=== PATIENT | male | born 1975 | race Caucasian/White ===

== ENCOUNTER 2024-07-19 02:10 | Inpatient (IN) | payer OTHER, SELFPAY ==
[2024-07-18 23:18] VITALS: BP 136/96
[2024-07-18 23:19] LABS: Glucose - Point of Care 115 mg/dl (70-99)
--- NOTE | 2024-07-18 23:32 | ED.CVA ---
History of Present Illness
<Haim Ramachandran Jr., PA-C - Last Filed: 07/19/24 01:18>
General
Chief Complaint: CVA/TIA Symptoms
Source: patient and ambulance crew
Exam Limitations: none
Time Seen by Provider: 07/18/24 23:25
Nursing documentation reviewed up to this point in time: agreed with
Onset of Stroke Symptoms
Onset of symptoms known: Yes
Date of onset of symptoms: 07/18/24
Time of onset of symptoms: 22:00
History of Present Illness
History of Present Illness:
48-year-old male past medical history of migraines presenting to the emergency department today with concerns of right-sided paresthesia of the right arm right leg as well as visual field loss on the right side laterally. Symptoms started 1 hour
prior to arrival. Did have some degree of right-sided throbbing headache that felt somewhat similar to a migraine earlier this morning. Seem to resolve during the day felt like the migraine was coming back a few hours ago did take an Excedrin
earlier in the evening. About 1 hour ago woke up from nap felt okay stood up was walking in his home and numbness tingling to the right upper and right lower extremity. [place] some vague weakness to the right side as well. Also noticed more visual
loss on the right lateral aspect. Also felt like he had some difficulty finding words. He then called EMS and was brought to the ER. Patient denies any ongoing paresthesia to the right upper and right lower extremity. He does claim he is having
slight difficulty finding words at this point and still has visual field loss on the right lateral side.
Review of Systems
<Haim Ramachandran Jr., PA-C - Last Filed: 07/19/24 01:18>
Review of Systems
Allergies reviewed?: Yes
All Other Systems: ROS reviewed and negative except as documented in HPI and ROS
Phy Exam
<Haim Ramachandran Jr., PA-C - Last Filed: 07/19/24 01:18>
Physical Exam
Physical Exam:
GENERAL: Alert , in no apparent distress
EYE: Right eye lateral visual field loss, normal on the left side pupils equal and reactive
NECK: Supple, no significant adenopathy.
ENT: o/p clr, mmm.
CARDIAC: Regular rate and rhythm .
LUNGS: Clear breath sounds bilaterally, no acute respiratory distress, no wheezes/rales/rhonchi
ABDOMEN: Soft, without focal tenderness, no r/g, no cvat
NEUROLOGICAL: Seems to have expressive aphasia to some extent difficulty finding words but able to eventually. Sentences are not perfectly fluid. Otherwise alert and oriented, no focal neuro deficits 5 out of 5 upper and lower extremity strength
normal sensation with palpating bilaterally normal finger-nose and [id number]
SKIN: Warm and dry, skin intact.
MUSCULOSKELETAL: No edema, well perfused.
PSYCH: Normal and appropriate interaction.
Course
<Haim Ramachandran Jr., ANSHU - Last Filed: 07/19/24 01:18>
Orders/Labs/Results
Orders:
Orders
07/18/24 23:21
Electrocardiogram (*1) Urgent
Reason for Study: Other
Other Reason for Exam: Possible Stroke
CT HEAD STROKE ALERT W/o Cont Stat
Comment:
Reason For Exam: stroke alert
CT HEAD/NECK ANG STROKE ALERT Stat
Comment:
Reason For Exam: stroke alert
Bedside Glucose- Treatment ONCE
Cardiac Monitoring- Treatment ONCE
EKG- Treatment ONCE
IV Insert/Care/Rem.- Treatment PRN
Urinalysis Reflex To Culture Urgent
Date Specimen was Collected: 07/18/24
Time Specimen was Collected: 23:21
Vital Signs As Directed
Frequency: Other
Weight As Directed
Frequency: Once
Comment: ZERO STRETCHER SCALE FOR ACCURATE WEIGHT
O2 Therapy [RESP] Urgent
Titrate/Wean O2 to maintain O2 sat greater than (%): 93
Special Instructions: MAINTAIN CONTINUOUS O2 SATS > OR = 93%
07/18/24 23:[address]
CT BRAIN PERF STROKE ALERT Stat
Comment:
Reason For Exam: stroke alert
07/18/24 23:41
CRP [C-Reactive Protein] Urgent
Complete Blood Count/With Diff Urgent
Comprehensive Metabolic Panel Urgent
ESR [Erythrocyte Sed Rate] Urgent
PTT Urgent
Prothrombin Time Urgent
Troponin I Urgent
07/19/24 00:03
Urine Microscopic Reflex Cult Urgent
07/19/24 00:23
Tenecteplase [Tnkase] 24 mg Syringe [Syringe Non-Pump] 0 ml IV NOW
Provider explained risk/benefits to patient &/or caregiver?: Yes
Blood pressure: 136/96
07/19/24 01:32
Admit/Transfer Patient As Directed
Co-Sign Provider:
Level of Care: Inpatient admission
Assign to:: ICU
Physician / Group: [place]
Diagnosis: CVA s/p TNK
Patient Condition: Serious
Reason for Hospitalization: CVA s/p TNK
Expected length of stay greater than two midnights?: Yes
ELOS- Estimated Length of Stay in days: 2
I certify the patient meets the requirements for IP care: Yes
PRN Pain Medication Management As Directed
May give lesser potent ordered pain med per pt: Yes
preference::
Protocol:: Medication orders for pain may be administered in a
manner that supports deferring to patient preference
when the pt is:
- Requesting an ordered lesser potent pain medication.
Least to most potent pain medications are defined
as: acetaminophen < NSAID < tramadol < opioids
(morphine, oxycodone, hydromorphone).
- Requesting a lesser dose of the same medication IF
ORDERED.
- Requesting a less intrusive route of administration
if both routes are prescribed by the provider (PO <
IV).
07/19/24 01:33
Code Status As Directed
Resuscitation Status: Full Code
07/19/24 01:53
0.9% Sodium Chloride [Nss (Preservative Free)] See Protocol IV PRN PRN
FOLic ACID [Folvite] 1 mg 0.9% Sodium Chloride 50 ml [Nss] 50 ml IV DAILYPRN
Lorazepam [Ativan] 1 mg IV Q1HPRN PRN
Lorazepam [Ativan] 1 mg PO Q2HPRN PRN
Lorazepam [Ativan] 2 mg IV Q1HPRN PRN
MSAS SCORE As Directed
MSAS Score 0-4: Repeat MSAS every 2 hours until 0-4 for three consecutive assessments, then every 4 hours x 48
hours.
MSAS Score 5-7: For MILD withdrawl symptoms. Repeat MSAS and RASS every 2 hours
MSAS Score 8-11: For MODERATE withdrawal symptoms. Repeat MSAS and RASS every 1 hour. Consider ICU or IMU
level of care.
MSAS Score > 11: For SEVERE withdrawal symptoms. Repeat MSAS and RASS every 1 hour. Notify provider, consider
ICU level of care.
MSAS Additional Instructions: If no improvement or no decrease in score from severe to moderate within 12
hours, consult psychiatry
MSAS Notify Provider: Notify provider if patient requires more than 10 mg of Lorazepam in eight hour period.
07/19/24 02:14
Acetaminophen [Tylenol] 650 mg PO Q4HPRN PRN
Atorvastatin [Lipitor] 40 mg PO QPM
Labetalol HCl [Trandate] 5 mg IV Q6HPRN PRN
07/19/24 02:14
Echo 2D MMode Color/Doppler Routine
Reason for Study: stroke/TIA
Electrocardiogram (*1) Routine
Reason for Study: TIA/Stroke
Case Management Consult Once
Case Management Consult: Other
Comment: CVA
Consult Notification Routine
Specialty to Notify: Physiatry
DIETARY IP CONSULT Routine
Reason for Consult: stroke/TIA
Rural Electrification Engineer Consult Routine
Consulting Provider: Swapna Yo
Was physician already notified: Yes
NEUROLOGY CONSULT Urgent
Consulting Provider: Chintan Thao
Was physician already notified: Yes
Reason for consult: CVA s/p TNK
Licensed Social Worker Urgent
MR Brain Without Contrast Routine
Comment: complete 24 hrs post tenecteplase administration
Reason For Exam: possible stroke, status post tenecteplase
OK for patient to be off Cardiac Monitoring for MRI: Yes
Recent pill cam endoscopy?: No
Pacemaker/Defibrillator?: No
Brain Aneurysm Clips?: No
Have you ever worked with metal? grinding metal? welding?: No
Cochlear(ear) implants?: No
Does Pt have a Temp Sensing Cath?: No
Does the patient have IV access?: Yes
Does the patient have any stents?: No
Hemetest Stools As Directed
Comment: hemoccult all stools if patient received tenecteplase
NIH Stroke Scale As Directed
Directions: Other
Comment: NIH stroke Scale to be completed prior to thrombolytic administration, then every 1 hour for 2
hours, then every shift and with change in condition and/or mental status.
Neurological Checks As Directed
Frequency: Per unit guidelines
Additional Instructions:: after start of thrombolytic therapy:
q15min x 2 hrs, q30min x 6 hrs, q1h x 16 hrs, q4h x 24 hrs, then every shift and
with any changes.
Notify MD As Directed
Notify physician if: - Any deterioration, change in neurological status, development of severe headache,
nausea and vomiting, or with any signs of bleeding. (see guidelines for suspected
intracerebral hemorrhage).
- If intracranial hemorrhage is suspected or confirmed by imaging, anticipate need for
osmotic diuretic to maintain euvolemia.
Notify MD As Directed
Notify physician if: Glucose less than 70 or greater than 180.
Anticipate corrective insulin orders.
Notify MD As Directed
Notify physician if: SBP not at goal within 30 minutes of prn LABETALOL administration.
notify provider to initiate continuous infusion of nicardipine or clevidipine.
Notify MD As Directed
Notify physician if: unable to obtain MRI of head within 22-32 hours of tenecteplase administration
- contact Neurology for order for CT of head without contrast
Patient Education As Directed
Type: Stroke education packet
Comment: provide to patient and family
Pneumatic Compression Sleeves As Directed
Type: Knee high
Precautions As Directed
Type of Precautions: Bleeding
Comment: post Bleeding Precaution sign at bedside (if patient received tenecteplase)
Swallow Screening CVA/TIA ONLY As Directed
Comment: NPO until swallow screening completed
If patient FAILS swallow screening:: NPO and Speech consult and aspiration precautions
If patient PASSES swallow screening, diet:: Cholesterol Lowering
Thrombolytic Precautions As Directed
Thrombolytic Precautions:: [place] bleeding precautions. Minimize invasive procedures and venipunctures,
avoid IM injections and over-handling patient, and check all puncture sites for
bleeding. Assess the patient and notify provider for signs and symptoms of
internal or serious bleeding, such as changes in vital signs or evidence of blood
in the urine or stool.
Additional instructions: Hemocult all stools.
Apply direct pressure or pressure dressing to any compressible puncture sites.
No ABG sampling or Gan insertion after Tenecteplase administration for 24 hours,
unless directed by the Neurologist/Attending.
Vital Signs As Directed
Frequency: q15m
Call for:: BP greater than 180/105 mmHg or less than 100/60 mmHg
Additional Instructions:: after start of thrombolytic therapy:
q15min x 2 hrs, q30min x 6 hrs, q1h x 16 hrs, q4h x 24 hrs, then every shift and
with any changes.
Ot Eval And Treat Routine
Physiatry Consult Routine
Consulting Provider: Monique Isaacs
Was physician already notified: No
Reason for consult: stroke/TIA
Pt Eval And Treat Routine
Activity Level: As Tolerated
Speech Therapy Eval & Treat Routine
DX Deep Vein Thrombosis Video Routine
07/19/24 03:12
Cardiovascular Evaluation IN AM
Complete Blood Count/No Diff IN AM
Comprehensive Metabolic Panel Routine
Direct Bilirubin Routine
Hemoglobin A1c [Glycohemoglobin (HgbA1c)] IN AM
PTT IN AM
Prothrombin Time IN AM
07/19/24 08:00
Cholecalciferol (Vitamin D3) [VITAMIN D3 (cholecalciferol)] 25 mcg PO DAILY
FOLic ACID [Folvite] 1 mg PO DAILY
Thiamine Injection 200 mg IV Q12
07/22/24 08:00
Thiamine HCl [Vitamin B1] 100 mg PO BID
Abnormal Lab Results
07/18/24 07/18/24 07/19/24
23:18 23:41 00:03
Absolute Monos (auto) 0.7 H 10^3/uL
(0.1-0.6)
Chloride 108 H mmol/L
(98-107)
BUN 21 H mg/dl
(9-20)
Glucose 118 H mg/dl
(70-99)
Urine Albumin (Reflex) 1+ A
(Neg - Trace)
POC Glucose 115 H mg/dl
(70-99)
07/18/24 23:41
07/18/24 23:41
Vital Signs
Initial and Last Documented VS:
Initial Vital Signs
Temp Pulse Resp BP Pulse Ox
98.7 F 80 18 136/96 99
07/18/24 23:18 07/18/24 23:18 07/18/24 23:18 07/18/24 23:18 07/18/24 23:18
Last Documented Vital Signs
Temp Pulse Resp BP Pulse Ox
98.7 F 57 17 104/68 96
07/19/24 03:08 07/19/24 06:03 07/19/24 06:03 07/19/24 06:03 07/19/24 06:00
<Evlia Ashton, DO - Last Filed: 07/19/24 06:20>
Orders/Labs/Results
Orders:
Orders
07/18/24 23:21
Electrocardiogram (*1) Urgent
Reason for Study: Other
Other Reason for Exam: Possible Stroke
CT HEAD STROKE ALERT W/o Cont Stat
Comment:
Reason For Exam: stroke alert
CT HEAD/NECK ANG STROKE ALERT Stat
Comment:
Reason For Exam: stroke alert
Bedside Glucose- Treatment ONCE
Cardiac Monitoring- Treatment ONCE
EKG- Treatment ONCE
IV Insert/Care/Rem.- Treatment PRN
Urinalysis Reflex To Culture Urgent
Date Specimen was Collected: 07/18/24
Time Specimen was Collected: 23:21
Vital Signs As Directed
Frequency: Other
Weight As Directed
Frequency: Once
Comment: ZERO STRETCHER SCALE FOR ACCURATE WEIGHT
O2 Therapy [RESP] Urgent
Titrate/Wean O2 to maintain O2 sat greater than (%): 93
Special Instructions: MAINTAIN CONTINUOUS O2 SATS > OR = 93%
07/18/24 23:[address] BRAIN PERF STROKE ALERT Stat
Comment:
Reason For Exam: stroke alert
07/18/24 23:41
CRP [C-Reactive Protein] Urgent
Complete Blood Count/With Diff Urgent
Comprehensive Metabolic Panel Urgent
ESR [Erythrocyte Sed Rate] Urgent
PTT Urgent
Prothrombin Time Urgent
Troponin I Urgent
07/19/24 00:03
Urine Microscopic Reflex Cult Urgent
07/19/24 00:23
Tenecteplase [Tnkase] 24 mg Syringe [Syringe Non-Pump] 0 ml IV NOW
Provider explained risk/benefits to patient &/or caregiver?: Yes
Blood pressure: 136/96
07/19/24 01:32
Admit/Transfer Patient As Directed
Co-Sign Provider:
Level of Care: Inpatient admission
Assign to:: ICU
Physician / Group: [place]
Diagnosis: CVA s/p TNK
Patient Condition: Serious
Reason for Hospitalization: CVA s/p TNK
Expected length of stay greater than two midnights?: Yes
ELOS- Estimated Length of Stay in days: 2
I certify the patient meets the requirements for IP care: Yes
PRN Pain Medication Management As Directed
May give lesser potent ordered pain med per pt: Yes
preference::
Protocol:: Medication orders for pain may be administered in a
manner that supports deferring to patient preference
when the pt is:
- Requesting an ordered lesser potent pain medication.
Least to most potent pain medications are defined
as: acetaminophen < NSAID < tramadol < opioids
(morphine, oxycodone, hydromorphone).
- Requesting a lesser dose of the same medication IF
ORDERED.
- Requesting a less intrusive route of administration
if both routes are prescribed by the provider (PO <
IV).
07/19/24 01:33
Code Status As Directed
Resuscitation Status: Full Code
07/19/24 01:53
0.9% Sodium Chloride [Nss (Preservative Free)] See Protocol IV PRN PRN
FOLic ACID [Folvite] 1 mg 0.9% Sodium Chloride 50 ml [Nss] 50 ml IV DAILYPRN
Lorazepam [Ativan] 1 mg IV Q1HPRN PRN
Lorazepam [Ativan] 1 mg PO Q2HPRN PRN
Lorazepam [Ativan] 2 mg IV Q1HPRN PRN
MSAS SCORE As Directed
MSAS Score 0-4: Repeat MSAS every 2 hours until 0-4 for three consecutive assessments, then every 4 hours x 48
hours.
MSAS Score 5-7: For MILD withdrawl symptoms. Repeat MSAS and RASS every 2 hours
MSAS Score 8-11: For MODERATE withdrawal symptoms. Repeat MSAS and RASS every 1 hour. Consider ICU or IMU
level of care.
MSAS Score > 11: For SEVERE withdrawal symptoms. Repeat MSAS and RASS every 1 hour. Notify provider, consider
ICU level of care.
MSAS Additional Instructions: If no improvement or no decrease in score from severe to moderate within 12
hours, consult psychiatry
MSAS Notify Provider: Notify provider if patient requires more than 10 mg of Lorazepam in eight hour period.
07/19/24 02:14
Acetaminophen [Tylenol] 650 mg PO Q4HPRN PRN
Atorvastatin [Lipitor] 40 mg PO QPM
Labetalol HCl [Trandate] 5 mg IV Q6HPRN PRN
07/19/24 02:14
Echo 2D MMode Color/Doppler Routine
Reason for Study: stroke/TIA
Electrocardiogram (*1) Routine
Reason for Study: TIA/Stroke
Case Management Consult Once
Case Management Consult: Other
Comment: CVA
Consult Notification Routine
Specialty to Notify: Physiatry
DIETARY IP CONSULT Routine
Reason for Consult: stroke/TIA
Rural Electrification Engineer Consult Routine
Consulting Provider: Swapna Yo
Was physician already notified: Yes
NEUROLOGY CONSULT Urgent
Consulting Provider: Chintan Thao
Was physician already notified: Yes
Reason for consult: CVA s/p TNK
Licensed Social Worker Urgent
MR Brain Without Contrast Routine
Comment: complete 24 hrs post tenecteplase administration
Reason For Exam: possible stroke, status post tenecteplase
OK for patient to be off Cardiac Monitoring for MRI: Yes
Recent pill cam endoscopy?: No
Pacemaker/Defibrillator?: No
Brain Aneurysm Clips?: No
Have you ever worked with metal? grinding metal? welding?: No
Cochlear(ear) implants?: No
Does Pt have a Temp Sensing Cath?: No
Does the patient have IV access?: Yes
Does the patient have any stents?: No
Hemetest Stools As Directed
Comment: hemoccult all stools if patient received tenecteplase
NIH Stroke Scale As Directed
Directions: Other
Comment: NIH stroke Scale to be completed prior to thrombolytic administration, then every 1 hour for 2
hours, then every shift and with change in condition and/or mental status.
Neurological Checks As Directed
Frequency: Per unit guidelines
Additional Instructions:: after start of thrombolytic therapy:
q15min x 2 hrs, q30min x 6 hrs, q1h x 16 hrs, q4h x 24 hrs, then every shift and
with any changes.
Notify MD As Directed
Notify physician if: - Any deterioration, change in neurological status, development of severe headache,
nausea and vomiting, or with any signs of bleeding. (see guidelines for suspected
intracerebral hemorrhage).
- If intracranial hemorrhage is suspected or confirmed by imaging, anticipate need for
osmotic diuretic to maintain euvolemia.
Notify MD As Directed
Notify physician if: Glucose less than 70 or greater than 180.
Anticipate corrective insulin orders.
Notify MD As Directed
Notify physician if: SBP not at goal within 30 minutes of prn LABETALOL administration.
notify provider to initiate continuous infusion of nicardipine or clevidipine.
Notify MD As Directed
Notify physician if: unable to obtain MRI of head within 22-32 hours of tenecteplase administration
- contact Neurology for order for CT of head without contrast
Patient Education As Directed
Type: Stroke education packet
Comment: provide to patient and family
Pneumatic Compression Sleeves As Directed
Type: Knee high
Precautions As Directed
Type of Precautions: Bleeding
Comment: post Bleeding Precaution sign at bedside (if patient received tenecteplase)
Swallow Screening CVA/TIA ONLY As Directed
Comment: NPO until swallow screening completed
If patient FAILS swallow screening:: NPO and Speech consult and aspiration precautions
If patient PASSES swallow screening, diet:: Cholesterol Lowering
Thrombolytic Precautions As Directed
Thrombolytic Precautions:: [place] bleeding precautions. Minimize invasive procedures and venipunctures,
avoid IM injections and over-handling patient, and check all puncture sites for
bleeding. Assess the patient and notify provider for signs and symptoms of
internal or serious bleeding, such as changes in vital signs or evidence of blood
in the urine or stool.
Additional instructions: Hemocult all stools.
Apply direct pressure or pressure dressing to any compressible puncture sites.
No ABG sampling or Gan insertion after Tenecteplase administration for 24 hours,
unless directed by the Neurologist/Attending.
Vital Signs As Directed
Frequency: q15m
Call for:: BP greater than 180/105 mmHg or less than 100/60 mmHg
Additional Instructions:: after start of thrombolytic therapy:
q15min x 2 hrs, q30min x 6 hrs, q1h x 16 hrs, q4h x 24 hrs, then every shift and
with any changes.
Ot Eval And Treat Routine
Physiatry Consult Routine
Consulting Provider: Monique Isaacs
Was physician already notified: No
Reason for consult: stroke/TIA
Pt Eval And Treat Routine
Activity Level: As Tolerated
Speech Therapy Eval & Treat Routine
DX Deep Vein Thrombosis Video Routine
07/19/24 03:12
Cardiovascular Evaluation IN AM
Complete Blood Count/No Diff IN AM
Comprehensive Metabolic Panel Routine
Direct Bilirubin Routine
Hemoglobin A1c [Glycohemoglobin (HgbA1c)] IN AM
PTT IN AM
Prothrombin Time IN AM
07/19/24 08:00
Cholecalciferol (Vitamin D3) [VITAMIN D3 (cholecalciferol)] 25 mcg PO DAILY
FOLic ACID [Folvite] 1 mg PO DAILY
Thiamine Injection 200 mg IV Q12
07/22/24 08:00
Thiamine HCl [Vitamin B1] 100 mg PO BID
Abnormal Lab Results
07/18/24 07/18/24 07/19/24
23:18 23:41 00:03
Absolute Monos (auto) 0.7 H 10^3/uL
(0.1-0.6)
Chloride 108 H mmol/L
(98-107)
BUN 21 H mg/dl
(9-20)
Glucose 118 H mg/dl
(70-99)
Urine Albumin (Reflex) 1+ A
(Neg - Trace)
POC Glucose 115 H mg/dl
(70-99)
07/18/24 23:41
07/18/24 23:41
Vital Signs
Initial and Last Documented VS:
Initial Vital Signs
Temp Pulse Resp BP Pulse Ox
98.7 F 80 18 136/96 99
07/18/24 23:18 07/18/24 23:18 07/18/24 23:18 07/18/24 23:18 07/18/24 23:18
Last Documented Vital Signs
Temp Pulse Resp BP Pulse Ox
98.7 F 57 17 104/68 96
07/19/24 03:08 07/19/24 06:03 07/19/24 06:03 07/19/24 06:03 07/19/24 06:00
<Haim Ramachandran Jr., PA-C - Last Filed: 07/19/24 01:18>
MDM/Problems Addressed
MDM/Problems Addressed:
48-year-old male presenting to the emergency department with concerns of right-sided paresthesias right-sided visual field loss and expressive aphasia. Did have felt like may have been a migraine does have a history of migraines. Symptoms started
while awake 1 hour ago. The paresthesia on the right sides has resolved but he still having visual field loss on the right side on examination as well. Also has a mild expressive aphasia. Stroke scale of 2. Stroke alert was called.
0015: Contacted about patient's CT scan concerning for vertebral artery dissection with thrombosis as well as evidence of stroke of left occipital lobe MARRIAGE AND FAMILY COUNSELOR distribution significant area of penumbra. Case was immediately discussed with neurology and
recommended TNK. This was thoroughly discussed with the patient including risk its bleeding risk as well. Patient wanted to proceed with receiving TNK. Hospitalist notified of the admission.
0035: Case additionally discussed with [facility] stroke team. Dr. [place]. They do not feel that he requires transfer as they would not do any intervention at this time.
Patient stable during thrombolytic treatment. Symptoms improving during ER stay.
Chronic conditions affecting care:
Contacted
<Haim Ramachandran Jr., PA-C - Last Filed: 07/19/24 01:18>
*Critical Care Note
Total Time (30-74mins, 75-104mins- exclusive of procedures): Not Applicable
comment:
Critical care statement: A total of 40 minutes of critical care time was provided for this patient. This includes management of unstable vital signs, evaluation of the patient at bedside, reviewing the patient's pertinent medical records, discussion
with consultants, review of old EKGs and review of pertinent medical records. This time with separate from time utilized to perform the aforementioned documented procedures
ED Attending Note
<Haim Ramachandran Jr., PA-C - Last Filed: 07/19/24 01:18>
-
Portions of this chart may have been created with voice recognition software.� Occasional wrong word or��sound alike� substitutions may have occurred due to the inherent limitations of voice recognition software.
<Elvia R. Ashton, DO - Last Filed: 07/19/24 06:20>
ED Attending Note
Patient seen and examined by attending physician: Yes
I performed a history and physical exam of patient and discussed management with resident, I reviewed resident's note and agree with documented findings and plan of care.: Yes
ED Attending Note:
Agree with above.
48-year-old gentleman with history of intermittent migraines presents with acute onset of significant right-sided global paresthesia, expressive aphasia, right visual field deficit. Had moderate headache and posterior neck pain throughout the day
today which has resolved this evening.
No insightful injury but admits to heavy lifting, working out with kettle bells prior to onset of some posterior neck pain a few days ago.
Upon arrival to the ED awake and alert, oriented x 3, no evidence of aphasia. Mild paresthesia globally to the right side and moderate right visual field deficit. No motor deficit. Initial NIH stroke scale of 2.
Stroke alert initiated promptly upon arrival to the ED.
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
Case discussed with neurology recommend TNK. Benefits/risks discussed including small risk of bleeding. Patient agreeable.
As per our neurologist recommendations, consideration for potential vertebral artery stent, we have spoken with neurologist at [place], images reviewed�at this point no indication for neuro-intervention, no intervention for stenting.
Overall symptoms improving.
Will admit to hospitalist service, ICU.
Critical care statement: A total of 40 minutes of critical care time was provided for this patient. This includes management of unstable vital signs, evaluation of the patient at bedside, reviewing the patient's pertinent medical records, discussion
with consultants, review of old EKGs and review of pertinent medical records. This time with separate from time utilized to perform the aforementioned documented procedures
Discharge Plan
Departure
Patient Disposition: Admit
Date of Disposition: 07/19/24
Time of Disposition: 00:48
Admit to: ICU
Admit to doctor: [place]
Presentation/result/management discussed w/ accepting MD/DO: Hospitalist
Patient with high blood pressure during this ER visit?: No
Condition: Fair
Covid-19: Not Applicable
Discharge Problem:
Occipital stroke, Dissection of vertebral artery
Interventions
Interventions:
*Risk Screen - Suicide Last Done: 07/18/24 23:18
*General Assessment Last Done: 07/18/24 23:18
*Neglect/Abuse Screening Last Done: 07/18/24 23:18
*ED- Fall Risk Assessment Last Done: 07/18/24 23:50
*ED COVID-19 Vaccine History Last Done: 07/18/24 23:50
*Nursing Disposition Last Done: 07/19/24 02:20
ED- Pulmonary Assessment Last Done: 07/18/24 23:50
ED- Neurological Assessment Last Done: 07/19/24 01:30
ED- Cardiac Assessment Last Done: 07/18/24 23:50
Discharge Date and Time
Discharge Date/Time: 07/19/24 02:20
[2024-07-18 23:47] LABS: % Basophils 0.7 % (0-2); % Eosinophils 4.6 % (0-6); % Immature Granulocytes 0.4 % (0-0.5); % Lymphocytes 26.9 % (20.5-51.1); % Monocytes 8.2 % (1.7-9.3); % Neutrophils 59.2 % (42.2-75.2); Absolute Basophils 0.1 10^3/uL (0-0.2); Absolute Eosinophils 0.4 10^3/uL (0-0.7); Absolute Lymphocytes 2.2 10^3/uL (1.2-3.4); Absolute Monocytes 0.7 10^3/uL (0.1-0.6); Absolute Neutrophils 4.8 10^3/uL (1.4-6.5); Hemoglobin 14.8 g/dL (13.0-18.0); Mean Corp Hgb Conc. 34.4 g/dL (33.0-37.0); Mean Platelet Volume 9.9 fL (7.4-10.4); Nucleated Red Blood Cells % 0 % (-); Platelet Count 286 10^3/uL (130-400); Red Blood Cell Count 4.94 10^6/uL (4.70-6.10); Red Cell Dist. Width 13.2 % (11.5-14.5); White Blood Cell Count 8.1 10^3/uL (4.8-10.8)
[2024-07-18 23:50] VITALS: BMI 29.2
[2024-07-19] VITALS (89 sets, daily range): BP systolic 104–159; BP diastolic 59–99; BMI 28.4
[2024-07-19] LABS: ALT (SGPT) 25 U/L (0-50); AST (SGOT) 27 U/L (17-59); Albumin 4.6 g/dl (3.5-5.0); Alkaline Phosphatase 103 U/L (38-126); Blood Urea Nitrogen 21 mg/dl (9-20); Calcium 9.7 mg/dl (8.4-10.2); Carbon Dioxide 26 mmol/L (22-30); Chloride 108 mmol/L (98-107); Estimated Creatinine Clearance 73 ml/min; Glucose 118 mg/dl (70-99); Potassium 4.1 mmol/L (3.5-5.1); Sodium 141 mmol/L (135-145); Total Bilirubin 0.7 mg/dl (0.2-1.3); Total Protein 7.6 g/dl (6.3-8.2); eGFR > 60.00
[2024-07-19 00:01] LABS: INR 0.83; PT 11.9 Sec (11.4-14.6)
[2024-07-19 00:02] LABS: APTT 26.7 Sec (23.4-35.0)
[2024-07-19 00:04] LABS: C-Reactive Protein < 5.00 mg/L (0.0-10.00)
[2024-07-19 00:10] LABS: Erythrocyte Sed Rate 10 mm/hour (0-20)
[2024-07-19 00:18] LABS: Troponin I 0.015 ng/ml
[2024-07-19 00:20] LABS: Urine Albumin 1+ (Neg - Trace); Urine Bilirubin Negative (Negative); Urine Character Clear (Clear); Urine Color Yellow; Urine Glucose Negative (Negative); Urine Ketone Negative (Negative); Urine Leukocyte Negative (Negative); Urine Nitrite Negative (Negative); Urine Occult Blood Negative (Negative); Urine Urobilinogen Negative (Neg - 1+)
[2024-07-19 00:27] LABS: Urine Squamous Cell 0-2 /LPF (Few)
[2024-07-19 00:29] LABS: Urine Red Blood Cell None Seen /HPF (0-2); Urine White Cell 0-2 /HPF (0-5)
[2024-07-19] MEDS: TNKASE 4.8 MG IV (00:31)
--- NOTE | 2024-07-19 01:45 | HPS.HSE ---
Family Physician
-
Family Physician: Anabella Pires
Chief Complaint
-
Right Sided Numbness, Weakness and Right Visual Field Deficit x 1 day
History of Present Illness
48yo M with PMH Migraine with Aura, NAHUN (not treated), Dry Mouth/Hx Gingival Bleeding, Alcohol Use presents to ER with Right Sided Numbness, Weakness and Right Visual Field Deficit x 1 day. Pt went to work per routine taking the train to [place]. Around
8am he felt an Aura as if he were going to have a migraine. Initially over his right mormonism, then over his frontal region. BRAND finally ensued at 1:30 pm with photo/phonophobia. He went outside for a walk and symptoms eventually abated. Made it home,
took a nap. Around 10pm he got up and went into the kitchen and felt sudden right arm/leg numbness which progressed to total weakness. He later noticed he had right lateral visual field loss. Denies Fever, Chills, Chest Pain, Palps, Sob, Cough, Abd
Pain, N/V/D/C, Dysuria, Calf or Leg Pain. Pt does note gingival bleeding s/p TNK administered 07/19 at 1231; he reports this being a problem in past 2/2 dry mouth.
ER course: Pt presents BP 149/95 -> 136/96, other V.S.S. WBC 8.1K, Hgb 14.8 g/dL, BUN/Cr 21/1.3, UA wnl, INR 0.83. Stroke alert on arrival. CT Brain: Subtle loss of spear-white matter differentiation in L Occiptal Lobe. No acute hemorrhage/mass; CT
perfusion: Left occiptal lobe infarct in DOUGH SHEETER distribution CTA H/N: nonspecified left vertebral artery just beyond origin in neck with faint reconstitution at level of C2 and intracranially concerning for thrombosed dissection. Left DOUGH SHEETER P3 segment
not well visualized. Similarly R DOUGH SHEETER distal P2 and P3 segments appear to have discontinuous contrast opacification. Case D/W Thrombectomy - no acute intervention. Case D/W Neurology - S/P TNK administered 07/19 at 12:31.
Medical History
Past Medical History
Past Medical History: Reports Other (Migraine with Aura, NAHUN (not treated), Dry Mouth/Hx Gingival Bleeding, Alcohol Use)
Past Surgical History: Reports Other (Colonoscopy)
Social History
Tobacco: Former Smoker (Previous 1PPD x 20 yrs, quit age 29.)
Alcohol: Binge drinker (Drinks 6-8 whiskey drinks 3 times per week, last drink Tuesday consuming 5 drinks. )
Drug: None
Personal:
Living: With Family
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
Family History
Family History: Other (Paternal Uncle with CVA. Mother with endometrial Ca. Father with ETOH abuse. )
Allergies / Home Medications
Allergies reflects when Allergies were last updated in [employer].
Home Medications with original date entered in [employer]
Allergy/Medication List:
Allergies
Allergy/AdvReac Type Severity Reaction Status Date / Time
No Known Allergies Allergy Unverified 07/18/24 23:17
Home Medications
acetylcysteine 600 mg capsule (NAC) mg 07/19/24
cholecalciferol (vitamin D3) 25 mcg (1,000 unit) chewable tablet (Vitamin D3) 25 mcg PO DAILY 07/19/24
creatine monohydrate 07/19/24
miscellaneous medical supply 07/19/24
Review of Systems
-
A 12 point ROS was completed and negative except as noted: Yes
Physical Exam
Vital Signs
Vital Signs
Temp Pulse Resp BP Pulse Ox
98.7 F 76 18 135/91 97
07/18/24 23:18 07/19/24 01:33 07/19/24 01:33 07/19/24 01:33 07/19/24 01:21
Physical Exam
General: Well Developed, Well Nourished and No Apparent Distress
HEENT: NormoCephalic, Atraumatic, Murphy Conjunctivae and Other (Dry MM, Poor dentition with gingival bleeding s/p TNK)
Respiratory: Clear
Cardiac: S1/S2 and Regular Rhythm; No Murmur or Rub
GI: Soft, Non Tender, Non Distended and Normal Bowel Sounds; No Organomegaly
Rectal: Deferred by Provider
Musculoskeletal: No Clubbing, No Cyanosis and No Edema
Skin: Warm and Dry; No Rash
Neuro: Awake, Alert, Oriented, AO x 3 and Other (Pt evaluated s/p TNK. MSK UE 5/5 throughout. MSK LE 5/5 throughout. Finger to nose grossly intact. Heel to thapa grossly intact. Speech comprehensible. Pupils 3mm equal and reactive. Right lateral
visual field deficit. ); No Slurred Speech, Facial Droop or Tremors
Hematologic/Lymphatic: No Lymphadenopathy
Psych: Calm
Laboratory Results
-
07/18/24 23:41
07/18/24 23:41
Laboratory Results
PT 11.9 Sec (11.4-14.6) 07/18/24 23:41
INR 0.83 07/18/24 23:41
APTT 26.7 Sec (23.4-35.0) 07/18/24 23:41
Total Bilirubin 0.7 mg/dl (0.2-1.3) 07/18/24 23:41
AST 27 U/L (17-59) 07/18/24 23:41
ALT 25 U/L (0-50) 07/18/24 23:41
Alkaline Phosphatase 103 U/L (38-126) 07/18/24 23:41
Troponin I 0.015 ng/ml 07/18/24 23:41
Data Reviewed
-
Diagnostic Radiology: Image Personally Visualized and interpreted
CT Scan: Image Personally Visualized and interpreted
Medical Tests (Nuc Med, Echo, EKG etc): Image Personally Visualized and interpreted (EKG NSR @ 67bpm, No acute ischemic changes, QTC 388ms.)
Lab Data: Labs Reviewed by me
Old Records: Reviewed
Impression/Plan
-
CVA
- Aura/Headaches (around 8am) followed by right sided numbness and weakness with right visual field deficit (around 10pm)
- Stroke Alert.
- CT Brain: Subtle loss of spear-white matter differentiation in L Occiptal Lobe. No acute hemorrhage/mass; CT perfusion: Left occipital lobe infarct in DOUGH SHEETER distribution CTA H/N: nonspecified left vertebral artery just beyond origin in neck with
faint reconstitution at level of C2 and intracranially concerning for thrombosed dissection. Left DOUGH SHEETER P3 segment not well visualized. Similarly R DOUGH SHEETER distal P2 and P3 segments appear to have discontinuous contrast opacification. Case D/W
Thrombectomy - no acute intervention.
- Case D/W Neurology - S/P TNK administered 07/19 at 12:31.
- Resolution of right sided deficits. Right visual deficit still present
- Continue neurochecks
- Start atorvastatin 40mg nightly
- Check Lipids/A1C
- Obtain TTE
- Obtain MRI brain
- Neurology consulted.
- PT/OT/REGIONAL SALES REPRESENTATIVE
Hypertension
- BP 149/95 at peak in ER
- Prn Labetalol 5mg IV for SBP > 180/105 mmHg in setting of TNK
Alcohol Abuse
- Drinks 6-8 whiskey drinks 3 times per week, last drink Tuesday consuming 5 drinks
- Denies known liver disease or withdrawal history
- Coags wnl. Check LFTs
- Thiamine/Folate. Prn Benzos per protocol
- Monitor MSAS
Gingival Bleeding - Mild gingival bleeding s/p TNK. Continue to monitor. Could consider nebulized TXA.
Hx Migraines - Previously treated with exedrin, taken earlier today. Prn Tylenol.
NAHUN - Pt reports intolerance to cpap.
Code Status: Full
Diet: Cardiac following bedside speech eval
DVT ppx: SCDs in setting of TNK.
--- NOTE | 2024-07-19 03:40 | PTCARENOTE ---
On assessment pt AAOx3, ST equally, pupils PERRLA, c/o mild 3/10 headache with neck discomfort, denies medication at this time, MSAS 0, last drink per pt was sunday 07/16, NIH 2 completed with ER nurse, vision field cut in b/l eyes, CHOCOLATE PRODUCTION MACHINE OPERATOR made aware of
new change and at bedside to assess pt, NIH remains at 2, SR/SB on the monitor, RA 97%, regular diet, blood return noted in b/l IVs, family at bedside and call thompson in reach
[2024-07-19 03:41] LABS: Hematocrit 41.2 % (39.0-52.0); Hemoglobin 14.1 g/dL (13.0-18.0); Mean Corp Hgb Conc. 34.2 g/dL (33.0-37.0); Mean Corpuscular Hgb 29.7 pg (27.0-31.0); Mean Corpuscular Volume 86.7 fL (80.0-94.0); Mean Platelet Volume 9.6 fL (7.4-10.4); Platelet Count 260 10^3/uL (130-400); Red Blood Cell Count 4.75 10^6/uL (4.70-6.10); Red Cell Dist. Width 13.1 % (11.5-14.5); White Blood Cell Count 7.6 10^3/uL (4.8-10.8)
[2024-07-19 03:46] LABS: INR 0.83; PT 11.9 Sec (11.4-14.6)
[2024-07-19 03:49] LABS: APTT 26.2 Sec (23.4-35.0)
[2024-07-19 03:53] LABS: ALT (SGPT) 23 U/L (0-50); AST (SGOT) 23 U/L (17-59); Albumin 4.4 g/dl (3.5-5.0); Alkaline Phosphatase 111 U/L (38-126); Blood Urea Nitrogen 20 mg/dl (9-20); Calcium 9.7 mg/dl (8.4-10.2); Carbon Dioxide 24 mmol/L (22-30); Chloride 108 mmol/L (98-107); Direct Bilirubin 0.1 mg/dl (0.0-0.4); Estimated Creatinine Clearance 106 ml/min; Glucose 118 mg/dl (70-99); HDL Cholesterol 53 mg/dl; LDL Cholesterol, Calculated 118 mg/dl; Magnesium 1.9 mg/dl (1.6-2.3); Phosphorus 3.4 mg/dl (2.5-4.5); Potassium 4.1 mmol/L (3.5-5.1); Sodium 139 mmol/L (135-145); Total Bilirubin 0.6 mg/dl (0.2-1.3); Total Cholesterol 209 mg/dl (50-199); Total Protein 7.2 g/dl (6.3-8.2); Triglyceride 191 mg/dl (10-149); Very Low Density Lipoprotein 38 mg/dl (0-30); eGFR > 60.00
[2024-07-19] MEDS: LIPITOR 40 MG PO (04:09)
--- NOTE | 2024-07-19 06:46 | W.PN.HOSP.TC ---
Addendum entered and electronically signed by Saskia Delgadillo MD 07/19/24 13:43:
I saw and evaluated the patient independently. I reviewed the resident�s note and agree with findings and plan as documented by Dr. Hadley.
GENERAL: well developed, well nourished, male in no apparent distress
HEENT: NC/AT
HEART: regular rate and rhythm, +S1, +S2
LUNGS : clear to auscultation bilaterally
ABDOM: soft, nontender, nondistended, + bowel sounds
EXT: no cyanosis, clubbing, or edema
NEUROLOGIC: grossly intact--? subtle word finding/memory issues
acute CVA--patient had what he described as the aura which would normally precede his migraines but his headache did not rise to the level of the migraine--he woke after a nap at 10 PM in the evening with right visual deficit, right sided facial
numbness, proceeding to right arm and leg numbness--CT scan done in the emergency department showed left occipital lobe infarct in the posterior circulation along with left vertebral artery intracranially concerning for a thrombosed
dissection--patient received TNK on July 19, 2024--he had resolution of right sided deficits but his vision loss has persisted--will need aspirin and possibly Eliquis given possibility of vertebral artery dissection--unfortunately, cannot have until
the 24-hour michael--will check MRI brain--appreciate neurology--added statin--will need PT/OT/speech--will need echocardiogram--given his visual field deficit he should not drive--neurology has informed the patient of this
essential HTN--permissive hypertension after TNK administration--follow BP--May need medication if blood pressure remains elevated
alcohol use/abuse--patient drinks 6-8 whiskeys 3 times per week--no signs of withdrawal symptoms--continue MSAS protocol
gingival bleeding--follow given TNK administration
history of migraines --resolved
NAHUN--intolerance to CPAP
DVT prophylaxis--SCDs
CODE STATUS--full code
Original Note:
Today's Communication/Plan
-
-Stat brain MRI pending to be obtained
-Echo pending to be [id number]
-Continue neurochecks per protocol
-Follow-up BPs, vitals
Assessment / Plan
Assessment / Plan
#CVA complicated with right sided weakness and right partial visual deficit
-Brought to ER with Stroke Alert
-CT Brain: Subtle loss of spear-white matter differentiation in L Occiptal Lobe. No acute hemorrhage/mass; CT perfusion: Left occipital lobe infarct in SOFTWARE ANALYST distribution CTA H/N: nonspecified left vertebral artery just beyond origin in neck with faint
reconstitution at level of C2 and intracranially concerning for thrombosed dissection. Left SOFTWARE ANALYST P3 segment not well visualized. Similarly R SOFTWARE ANALYST distal P2 and P3 segments appear to have discontinuous contrast opacification. Case D/W Thrombectomy - no
acute intervention.
-Neurology on board- Given TNK on 07/19 at 12:31-
-Awaiting for neurology recommendation to start oral anticoagulants
-Will be obtained brain imaging with brain MRI as a part of TNK protocol-pending to be obtained
-On physical exam: No motor or sensory deficit. Found right upper quadrant visual deficit
-Continue neurochecks
-LDL:118 -Continue atorvastatin 40mg
-hgbA1C:pending
-TTE pending to be obtained to check a possible a cardioembolic thrombus source
-PT/OT
- Appreciate or speech therapist assessment: No dysarthria or dysphonia
#Hypertension
-No History of hypertension
-Likely stable
-BP peak was 159/98 last night
-Permissive hypertension given ischemic nature of CVA
-PRN Labetalol 5mg IV for SBP > 180/105 mmHg in setting of TNK
#Alcohol Abuse
- Drinks 6-8 whiskey drinks 3 times per week, last drink Tuesday consuming 5 drinks
- NO known liver disease or withdrawal history
- LFT s in WNL
- Continue Thiamine/Folate
- Monitor on MSAS
#Gingival Bleeding
-No signs of active bleeding for now
- Had mild gingival bleeding s/p TNK. Continue to monitor.
-Could consider nebulized TXA.
#Hx Migraines
-No complaints for now
- History of migraines headache with aura with the last episode yesterday
-Previously treated with exedrin, taken earlier yesterday
-Tylenol as needed
#NAHUN -not using currently BiPAP or CPAP
Diet: speech eval: Regular diet with general aspiration precautions
Code Status: Full
DVT ppx: SCDs in setting of TNK.
Anticipated Discharge: 24 - 48 hours
Subjective/Interval History
-
Date of Service: July 19, 2024
No complaints other than partial right vision loss
Objective Data
-
Labs:
Laboratory Results
07/18/24 07/19/24
23:41 03:12
WBC 8.1 7.6
Hgb 14.8 14.1
Hct 43.0 41.2
Plt Count 286 260
PT 11.9 11.9
INR 0.83 0.83
APTT 26.7 26.2
Sodium 141 139
Potassium 4.1 4.1
Chloride 108 H 108 H
Carbon Dioxide 26 24
BUN 21 H 20
Creatinine 1.3 0.9
Glucose 118 H 118 H
Calcium 9.7 9.7
Total Bilirubin 0.7 0.6
AST 27 23
ALT 25 23
Alkaline Phosphatase 103 111
Vital Signs:
Vital Signs
Temp Pulse Resp BP Pulse Ox
98.7 F 57 17 104/68 96
07/19/24 03:08 07/19/24 06:03 07/19/24 06:03 07/19/24 06:03 07/19/24 06:00
I&O
07/17/24 07/18/24 07/19/24
06:59 06:59 06:59
Intake Total
Output Total 700 / 700
Balance -670 / -670
Review of Systems
-
Constitutional: Reports No Symptoms and Other (right vision partial loss)
Physical Exam
-
General: Well Developed, Well Nourished and Comfortable
HEENT: Normocephalic, Atraumatic and Other (right upper quadrantanopia)
Respiratory: Clear to Auscultation
Cardiac: Regular Rhythm, S1/S2 and Bradycardic
GI: Soft, Nontender and Nondistended
Musculoskeletal: No Clubbing, No Cyanosis and No Edema
Skin: Warm
Neuro: Awake, Alert, Oriented, AO x 3 and Nonfocal/Grossly Intact
Psych: Calm
[2024-07-19] MEDS: VITAMIN D3 (cholecalciferol) 25 MCG PO (07:37)
[2024-07-19] MEDS: FOLVITE 1 MG PO (07:37)
[2024-07-19] MEDS: THIAMINE INJECTION 200 MG IV ×2 (07:37→22:14)
--- NOTE | 2024-07-19 07:54 | PTCARENOTE ---
Echo in progress.
--- NOTE | 2024-07-19 08:19 | PTCARENOTE ---
Rec'd care of patient at 0700. NIH stroke scale performed with previous RN. NIH-2 (right hemianopia). Patient alert and oriented. Pupils equal and reactive. Smile symmetrical, tongue midline. MAEx4; normal strength. Denies any numbness/tingling.
SB/NSR on tele. No edema. Palpable pulses. Lung sounds cta. Pulse ox 97-98% on RA. +BS. Passed swallow evaluation. No s/s aspiration. Pills taken whole with water. Voiding via urinal. Peripheral sites capped. VSS. Call thompson within reach.
--- NOTE | 2024-07-19 08:55 | PTOTSP ---
Speech Language Pathology
Pt seen for speech/language evaluations. No dysarthria or dysphonia noted. Language evaluated via the Quick Aphasia Battery (QAB). Pt with an overall score of 9.90, indicative of scores WNL.
Pt also seen for clinical bedside swallow evaluation. P.O. trials of puree, regular solids, and thin liquids provided. Adequate mastication, bolus formation, and A-P transit noted with no oral residue. No overt signs of aspiration.
Recommend:
(1) Regular solids/thin liquids
(2) General aspiration precautions
(3) Meds as tolerated
(4) ORCHESTRA DIRECTOR to continue to follow for cognitive evaluation
[2024-07-19 09:17] LABS: Glycohemoglobin (HgbA1c) 5.3 % (4.0-5.6)
--- NOTE | 2024-07-19 10:56 | CON.NEURO ---
Addendum entered and electronically signed by Chintan Thao MD 07/19/24 12:51:
paged by RN, patient with new numbness/tingling right face, and mild lightheadedness
patient examined, there is new decreased pinprick in the right V3 distribution
no changes to the plan; if she strokes a little more or has a small bleed nothing I can do; head CT is generally indicated if NIHSS worsens by 3 points or more
Original Note:
Neuro Assessment/Plan
Assessment
CTA head/neck images and report rev'd, agree left vertebral not well perfused, concerning for dissection with occlusion; bilateral distal P2 and P3 segments not well visualized
CT perfusion maps imgs reviewed with patient pointing out core and penumbra, stroke in left SOLE SEWER HAND territory with 9cc core and 45 cc penumbra
Plan
s/p TNK, getting 24 hrs of ICU monitoring
MRI brain and MRA head tonight with dissection protocol
may start Eliquis tomorrow if studies consistent with vertebral artery dissection with clot and depending on size of infarct
no driving unless visual cheung improve to 3/4 of field; DL-13 reported to COUNTS [facility] AT [facility]
the bottom quadrant often recovers but the top quadrant is less likely; will need formal visual field testing to get license back
above discussed with patient
Consultation
Order
Date of Consultation: 07/19/24
Requesting Provider: Haim Ramachandran Jr
Reason for Consult: stroke
Subjective/Objective
Subjective Data
Date of Service: July 19, 2024
from h&p:
48yo M with PMH Migraine with Aura, NAHUN (not treated), Dry Mouth/Hx Gingival Bleeding, Alcohol Use presents to ER with Right Sided Numbness, Weakness and Right Visual Field Deficit x 1 day. Pt went to work per routine taking the train to [place]. Around
8am he felt an Aura as if he were going to have a migraine. Initially over his right gnosticism, then over his frontal region. BRAND finally ensued at 1:30 pm with photo/phonophobia. He went outside for a walk and symptoms eventually abated. Made it home,
took a nap. Around 10pm he got up and went into the kitchen and felt sudden right arm/leg numbness which progressed to total weakness. He later noticed he had right lateral visual field loss. Denies Fever, Chills, Chest Pain, Palps, Sob, Cough, Abd
Pain, N/V/D/C, Dysuria, Calf or Leg Pain. Pt does note gingival bleeding s/p TNK administered 07/19 at 1231; he reports this being a problem in past 2/2 dry mouth.
ER course: Pt presents BP 149/95 -> 136/96, other V.S.S. WBC 8.1K, Hgb 14.8 g/dL, BUN/Cr 21/1.3, UA wnl, INR 0.83. Stroke alert on arrival. CT Brain: Subtle loss of spear-white matter differentiation in L Occiptal Lobe. No acute hemorrhage/mass; CT
perfusion: Left occiptal lobe infarct in SOLE SEWER HAND distribution CTA H/N: nonspecified left vertebral artery just beyond origin in neck with faint reconstitution at level of C2 and intracranially concerning for thrombosed dissection. Left SOLE SEWER HAND P3 segment
not well visualized. Similarly R SOLE SEWER HAND distal P2 and P3 segments appear to have discontinuous contrast opacification. Case D/W Thrombectomy - no acute intervention. Case D/W Neurology - S/P TNK administered 07/19 at 12:31.
last night around 12:10 am I spoke with Dr Ramachandran regarding this case, and advised treating with TNK, advised calling [facility] and no intervention was recommended.
This morning, patient continues having right sided visual field loss. the right sided weakness/numbness is resolved
he recalls ~1 year ago doing intense kettlebell exercises feeling something crack in his neck and developing neck pain
Objective Data
Vital Signs
Temp Pulse Resp BP Pulse Ox
37.0 C 68 18 122/97 96
07/19/24 07:37 07/19/24 10:33 07/19/24 10:33 07/19/24 10:33 07/19/24 10:30
Lab Results
07/19/24 03:12
07/19/24 03:12
PT 11.9 Sec (11.4-14.6) 07/19/24 03:12
INR 0.83 07/19/24 03:12
APTT 26.2 Sec (23.4-35.0) 07/19/24 03:12
Sodium 139 mmol/L (135-145) 07/19/24 03:12
Potassium 4.1 mmol/L (3.5-5.1) 07/19/24 03:12
BUN 20 mg/dl (9-20) 07/19/24 03:12
Glucose 118 mg/dl (70-99) H 07/19/24 03:12
Calcium 9.7 mg/dl (8.4-10.2) 07/19/24 03:12
Phosphorus 3.4 mg/dl (2.5-4.5) 07/19/24 03:12
LDL Cholesterol, Calc 118 mg/dl 07/19/24 03:12
Patient Allergies
No Known Allergies Allergy (Unverified 07/18/24 23:17)
CVA Assessment
Onset of Stroke Symptoms
Date of onset of symptoms: 07/18/24
Time of onset of symptoms: 22:00
NIH Stroke Score
Level of Consciousness: 0 - Alert
LOC Questions: 0-Answers both correctly
LOC Commands: 0-Performs both correctly
Best Horizontal Gaze: 0-Normal
Visual Cheung: 2=Full hemianopia
Facial Palsy: 0=Normal, symmetrical
Motor - Right Arm: 0=No drift 10 seconds
Motor - Left Arm: 0=No drift 10 seconds
Motor - Right Le-No drift 5 seconds
Motor - Left Le-No drift 5 seconds
Limb Ataxia: 0-Absent
Sensation: 0-Normal
Best Language: 0-No aphasia
Dysarthria: 0-Normal
Extinction and Inattention: 0-No abnormality
NIH Total Score:: 2
Physical Exam
-
AAOx3, speech clear, language intact
right homonymous hemianopsia
EOMI, face symmetric
full strength b/l UE/LE
sensation intact to touch/temp
Medications
-
Active Medications
Generic Name Dose Route Start Last Admin
Trade Name Freq PRN Reason Stop Dose Admin
Acetaminophen 650 mg 07/19/24 02:14
Acetaminophen 325 Mg Tablet PO 08/16/24 02:13
Q4HPRN PRN
BRAND, mild pain, or temp >100.4F
Atorvastatin Calcium 40 mg 07/19/24 02:14 07/19/24 04:09
Atorvastatin (Lipitor) 40 Mg Tablet PO 08/16/24 02:13 40 mg
QPM GATITO Administration
Cholecalciferol 25 mcg 07/19/24 08:00 07/19/24 07:37
Cholecalciferol (Vitamin D3) 25 Mcg Tablet (1,000 Units) PO 08/16/24 07:59 25 mcg
DAILY GATITO Administration
Folic Acid 1 mg 07/19/24 08:00 07/19/24 07:37
Folic Acid 1 Mg Tablet PO 08/16/24 07:59 1 mg
DAILY GATITO Administration
Folic Acid 1 mg/ Sodium 50.2 mls @ 200.8 mls/hr 07/19/24 01:53
Chloride IV 08/16/24 01:52
DAILYPRN PRN
if NPO
Labetalol HCl 10 mg 07/19/24 02:58
Labetalol Hcl 5 Mg/1 Ml (20 Mg/4 Ml) Injection IV 08/16/24 02:13
Q6HPRN PRN
BP > 180/105 mmHg
Lorazepam 1 mg 07/19/24 01:53
Lorazepam 1 Mg Tablet PO 08/16/24 01:52
Q2HPRN PRN
MSAS 5-7
Lorazepam 1 mg 07/19/24 01:53
Lorazepam 2 Mg/Ml Vial IV 08/16/24 01:52
Q1HPRN PRN
MSAS 8-11
Lorazepam 2 mg 07/19/24 01:53
Lorazepam 2 Mg/Ml Vial IV 08/16/24 01:52
Q1HPRN PRN
MSAS > 11
Sodium Chloride 0 ml 07/19/24 01:53
Sodium Chloride 0.9% (Preservative Free) 10 Ml Vial IV 08/16/24 01:52
PRN PRN
To dilute IV Ativan
Protocol
Sodium Chloride 0 flush 07/19/24 03:00
Sodium Chloride 0.9% (Flush) Syringe IV 08/16/24 02:59
PER PROTOCOL GATITO
Thiamine HCl 200 mg 07/19/24 08:00 07/19/24 07:37
Thiamine (100 Mg/Ml) 2 Ml Vial IV 07/21/24 20:01 200 mg
Q12 GATITO Administration
Thiamine HCl 100 mg 07/22/24 08:00
Thiamine 100 Mg Tablet PO 08/19/24 07:59
BID GATITO
Home Medications
�Medication �Instructions �Recorded
acetylcysteine 600 mg capsule (NAC) mg 07/19/24
cholecalciferol (vitamin D3) 25 25 mcg PO DAILY 07/19/24
mcg (1,000 unit) chewable tablet
(Vitamin D3)
creatine monohydrate 07/19/24
miscellaneous medical supply 07/19/24
--- NOTE | 2024-07-19 11:06 | CON.INTV ---
Addendum entered and electronically signed by Swapna Yo MD 07/20/24 10:33:
Patient transferring out of ICU.
WIll sign off. Please call as needed.
Original Note:
Consultation
Consultation Request
Date/Time Consultation Requested: 07/19/2024
Date/Time Consultation Performed: 07/19/2024
Reason for Consultation: Acute occipital lobe stroke
Medical History
-
Chief Complaint: Vertebral artery dissection
History of Present Illness:
48-year-old male past medical history of migraines, NAHUN, alcohol use disorder presented for right sided numbness and right-sided visual field deficit. Reportedly his last time known normal was Tuesday at 8 AM. Patient reports that he has no
history of hypertension, hyperlipidemia, diabetes, or remote smoking history. Reportedly he did have an injury where he exercises with kettle bells, was feeling odd sensation such as hotness and discomfort in the neck after The workout. On
presentation to the emergency department CT head demonstrated a left occipital lobe infarct. Noncontrast head CT demonstrated subtle loss of spear-white differentiation within the left occipital lobe. Aspect score 9 out of 10. Head neck CTA
demonstrated left vertebral artery not perfusing well near origin. Concerning for left vertebral artery dissection. Brain CT demonstrated prolonged Tmax in left occipital lobe and decreased cervical blood flow in the same area. Neurology was
consulted, patient was not a candidate for thrombectomy and he received TNK at approximately 00 31 07/23/2023. Reportedly patient reports that his symptoms have improved after receiving it however he does still have residual visual field deficits on
the right, lateral. No other visual field deficits present, all other cranial nerves grossly intact. No focal neurologic deficits present. Patient was admitted to the ICU after TNK administration. Of note patient is reporting he does not want to
start on a statin until he speaks to his physicians at [employer] where he works.
Past Medical History
Past Medical History: Other (Reportedly patient has a history of migraine with aura, obstructive sleep apnea. Reports no history of hypertension, no hyperlipidemia, no diabetes, remote smoking history )
Social History
Tobacco: Former Smoker
Alcohol: Chronic Alcoholic
Allergies / Home Medications
Allergies
Allergy/AdvReac Type Severity Reaction Status Date / Time
No Known Allergies Allergy Unverified 07/18/24 23:17
Home Medications
�Medication �Instructions �Recorded �Confirmed �Last Taken �Type
acetylcysteine 600 mg capsule (NAC) mg 07/19/24 Unknown History
cholecalciferol (vitamin D3) 25 25 mcg PO DAILY 07/19/24 07/19/24 07/18/24 History
mcg (1,000 unit) chewable tablet
(Vitamin D3)
creatine monohydrate 07/19/24 Unknown History
miscellaneous medical supply 07/19/24 Unknown History
Review of Systems
-
Constitutional: No Symptoms
EENT: No Symptoms
Respiratory: No Symptoms
Cardiac: No Symptoms
Abdomen/GI: No Symptoms
Musculoskeletal: No Symptoms
Neuro: Other (Right-sided visual field deficit)
Vitals / Labs / Diagnostic Testing
Vital Signs
Temp Pulse Resp BP Pulse Ox
98.6 F 68 18 122/97 96
07/19/24 07:37 07/19/24 10:33 07/19/24 10:33 07/19/24 10:33 07/19/24 10:30
Lab Data
07/19/24 03:12
07/19/24 03:12
Laboratory Results
07/18/24 07/19/24
23:41 03:12
PT 11.9 11.9
INR 0.83 0.83
APTT 26.7 26.2
Diagnostic Testing:
Physical Exam
-
Cardiovascular: S1/S2
Respiratory: Clear
GI: Soft and Non Distended
Neurology: Awake, Alert, Oriented, AO x 3, No Motor Deficits and Other (Right-sided visual field deficit, lateral visual more. Full strength and sensation throughout upper and lower extremity. Cranial nerves grossly intact except for right,
lateral sided visual field deficit)
Skin: Warm and Dry
General: Comfortable
Assessment
-
Assessment:
48-year-old male past medical history of migraines, NAHUN, alcohol use disorder presents for vertebral artery dissection, received TNK. Has isolated residual right sided lateral visual field deficit.
Plan:
#Vertebral artery dissection
#Left occipital lobe CVA
#Right sided lateral visual field deficit
Patient has no risk factors for stroke besides reported trauma while he was doing a kettle thompson workout of his neck. Reportedly former smoker stopped at 29, no diabetes, no hypertension, no hyperlipidemia reports no chiropractic treatment
Last time known normal was Tuesday at 8 AM
Presented to [place] emergency department with right sided lateral visual field deficit and reported right-sided hemiparesis
Was not a candidate for thrombectomy
Neurology consulted
Status post TNK administration at 0031 hrs 07/19/2024
Imaging and physical exam findings all point towards isolated left sided occipital lobe infarct secondary to left vertebral artery dissection
No focal neurologic deficits. Patient has full strength and sensation in upper and lower extremities. Cranial nerves grossly intact except for residual right sided lateral visual field deficit
Neurology evaluation pending
Will defer anticoagulation discussion and initiation to neurology
Patient reports he wants to speak to his physicians at [place] where he works prior to initiating statin. Patient currently refusing statin
Continue neurochecks
Brain MRI per neurology
TTE pending
PT OT
Speech therapy assessment
#Alcohol abuse
Reportedly 6-8 whiskey drinks 3 times daily, last reported drinking time was Tuesday
No known liver disease or withdrawal history
Currently patient has no symptoms of withdrawal
Continue thiamine/folate supplementation
Continue monitoring on MSAS protocol
#Hypertension
Had elevated pressures overnight
Currently normotensive
No reported history of hypertension, not on antihypertensive Home meds
Allow for permissive hypertension given ischemic CVA
Has as needed labetalol if needed for SBP greater than 180 in setting of TNK
Diet: Regular diet with general aspiration precautions
CODE STATUS full code
DVT prophylaxis SCDs in setting of TNK
Data:
07/18/[address] without contrast
Impression:
Subtle loss of spear-white differentiation within the left occipital lobe.
ASPECT score: 9/10
Findings are in agreement with the [facility]ology report.
07/18/2024 head and neck CVA
Impression:
1. The left vertebral artery is not well perfused near the origin, with weak segmental reconstitution of the distal cervical and proximal intracranial left vertebral artery. Basilar artery is normally perfused. Findings may represent left vertebral
arterial occlusion or dissection.
2. Distal P2 and P3 segments of each posterior cerebral artery are not well opacified.
Findings are in agreement with the [facility] radiology report.
07/18/[address] perfusion scan
Impression:
There is prolonged Tmax within the left occipital lobe, and decreased cerebral blood flow in the same area. Decreased cerebral blood volume within the left occipital lobe.
--- NOTE | 2024-07-19 12:45 | PTCARENOTE ---
Around 1220, patient complaining of new numbness/tingling in right side of face, dizziness and a headache. NIH stroke scale completed. NIH-3. Neurologist notified of changes. Neurologist at bedside to assess patient. Per neurologist, no changes in
plan of care at current time. VSS. No other changes. Patient remains alert and oriented. Pupils equal and reactive. Smile symmetrical, tongue midline. Speech normal. MAEx4; strength unchanged. NSR on tele. Pulse ox 96% on RA. Lung sounds cta.
Tolerated eating lunch. Voiding via urinal.
--- NOTE | 2024-07-19 14:27 | CM ---
Patient seen at bedside with physician in ICU. Patient states that he lives with his daughter and son, in a 2 story home. Patient PCP is Dr. Pires and he indicated that he uses the [facility] in [place]. Patient has a CPAP but does not use it.
Patient for further work up and pending PT/OT assessment for level of care qualification. CM will continue to follow for discharge planning needs.
Plan; home with watch for VN/outpatient needs pending therapy assessment
--- NOTE | 2024-07-19 16:36 | PTCARENOTE ---
No major changes in assessment. Patient states numbness/tinging in right side of face has slightly improved. Dizziness has resolved. Visual deficits unchanged. VSS.
[2024-07-19] MEDS: LIPITOR PO (17:42)
--- NOTE | 2024-07-19 17:42 | PTCARENOTE ---
Patient refused Lipitor. Education provided. Patient stating he does not want to take a statin; requesting to hold off and discuss cholesterol treatment with his doctor once discharged.
--- NOTE | 2024-07-19 19:00 | PTCARENOTE ---
Pt received start of shift, HR SR/SB on telemetry. NIH completed w/ outgoing RN; NIH 3 d/t vision loss in R eye and R facial numbness. L eye vision changes resolved. Pt states numbness in R face is improving but still not resolved. Neuro otherwise
intact, WNL. Oriented. Denies any pain, tongue midline. Voiding yellow clear urine in urinal.
--- NOTE | 2024-07-19 20:32 | PTCARENOTE ---
R sided facial numbness resolved. NIH 2 d/t unchanged vision loss in R eye.
--- NOTE | 2024-07-19 20:40 | PTCARENOTE ---
Transport pt to MRI
--- NOTE | 2024-07-19 21:59 | PTCARENOTE ---
Pt back from MRI. During MRI pt w/ episode of anxiety and restlessness after first series of imaging. Water provided, therapeutic speech utilized - effective. NIH 2.
--- NOTE | 2024-07-19 23:40 | PTCARENOTE ---
Pt states 'dullness'/numbness is back in R cheek and it 'sort of comes and goes'. [facility] 3.
[2024-07-20] VITALS (18 sets, daily range): BP systolic 102–140; BP diastolic 58–93; PULSE 65–67; BMI 27.6
[2024-07-20 04:55] LABS: Hematocrit 42.9 % (39.0-52.0); Hemoglobin 14.6 g/dL (13.0-18.0); Mean Corpuscular Hgb 29.3 pg (27.0-31.0); Mean Corpuscular Volume 86.1 fL (80.0-94.0); Mean Platelet Volume 9.5 fL (7.4-10.4); Platelet Count 264 10^3/uL (130-400); Red Blood Cell Count 4.98 10^6/uL (4.70-6.10); Red Cell Dist. Width 13.2 % (11.5-14.5); White Blood Cell Count 9.3 10^3/uL (4.8-10.8)
--- NOTE | 2024-07-20 05:06 | PTCARENOTE ---
Reassessed. NIH remains 2-3. No worsening of symptoms. Voiding yellow urine.
[2024-07-20 05:22] LABS: ALT (SGPT) 26 U/L (0-50); AST (SGOT) 25 U/L (17-59); Albumin 4.5 g/dl (3.5-5.0); Alkaline Phosphatase 48 U/L (38-126); Blood Urea Nitrogen 14 mg/dl (9-20); Calcium 10.1 mg/dl (8.4-10.2); Carbon Dioxide 24 mmol/L (22-30); Chloride 109 mmol/L (98-107); Estimated Creatinine Clearance 119 ml/min; Glucose 110 mg/dl (70-99); Potassium 4.2 mmol/L (3.5-5.1); Sodium 139 mmol/L (135-145); Total Bilirubin 1.6 mg/dl (0.2-1.3); Total Protein 7.5 g/dl (6.3-8.2); eGFR > 60.00
[2024-07-20] MEDS: VITAMIN D3 (cholecalciferol) 25 MCG PO (07:41)
[2024-07-20] MEDS: FOLVITE 1 MG PO (07:41)
[2024-07-20] MEDS: THIAMINE INJECTION 200 MG IV (07:41)
--- NOTE | 2024-07-20 08:39 | PTCARENOTE ---
Received pt sitting in chair. AOx3, see NIHSS, completed w/ previous RN. VSS. SB-NRS on monitor. Pt offers no complaints. Reviewed medications and plan of care.
--- NOTE | 2024-07-20 08:57 | W.PN.HOSP.TC ---
Addendum entered and electronically signed by Saskia Delgadillo MD 07/20/24 12:13:
I saw and evaluated the patient independently. I reviewed the resident�s note and agree with findings and plan as documented by Dr. Hadley.
GENERAL: well developed, well nourished, male in no apparent distress
HEENT: NC/AT
HEART: regular rate and rhythm, +S1, +S2
LUNGS : clear to auscultation bilaterally
ABDOM: soft, nontender, nondistended, + bowel sounds
EXT: no cyanosis, clubbing, or edema
NEUROLOGIC: grossly intact--? subtle word finding/memory issues--vision field deficit
acute CVA--patient had what he described as the aura which would normally precede his migraines but his headache did not rise to the level of the migraine--he woke after a nap at 10 PM in the evening with right visual deficit, right sided facial
numbness, proceeding to right arm and leg numbness--CT scan done in the emergency department showed left occipital lobe infarct in the posterior circulation along with left vertebral artery intracranially concerning for a thrombosed
dissection--patient received TNK on July 19, 2024--he had resolution of right sided deficits but his vision loss has persisted--will need aspirin and possibly Eliquis given possibility of vertebral artery dissection-- MRI brain with acute to subacute
area of infarction in left occipital lobe--appreciate neurology--added statin- PT/OT/speech--echocardiogram WNL--given his visual field deficit he should not drive--neurology has informed the patient of this--asa for 2 weeks followed by Eliquis
essential HTN--permissive hypertension after TNK administration--follow BP--May need medication if blood pressure remains elevated
alcohol use/abuse--patient drinks 6-8 whiskeys 3 times per week--no signs of withdrawal symptoms--continue MSAS protocol
gingival bleeding--follow given TNK administration
history of migraines --resolved
NAHUN--intolerance to CPAP
DVT prophylaxis--SCDs
CODE STATUS--full code
Original Note:
Today's Communication/Plan
-
Discharge plan
Assessment / Plan
Assessment / Plan
#Acute CVA with suspected vertebral artery dissection complicated with right sided weakness and right partial visual deficit
-Brought to ER with stroke Alert and given TNK Given TNK on 07/19 at 12:31
CT Brain: Subtle loss of spear-white matter differentiation in L Occiptal Lobe. No acute hemorrhage/mass; CT perfusion: Left occipital lobe infarct in POT PUNCHER distribution CTA H/N: nonspecified left vertebral artery just beyond origin in neck with faint
reconstitution at level of C2 and intracranially concerning for thrombosed dissection. Left POT PUNCHER P3 segment not well visualized. Similarly R POT PUNCHER distal P2 and P3 segments appear to have discontinuous contrast opacification. Case D/W Thrombectomy - no
acute intervention.
-Follow-up brain MRI: No hemorrhage or mass. Areas of loss of flow and diminished flow within the visualized superior left vertebral artery, likely representing findings from left vertebral artery dissection.
-Neurology on board-cleared for discharge with a plan to continue aspirin for 2 weeks and considering to switch to Eliquis following in 2weeks due a concern of higher bleeding risk
-On physical exam: No motor deficit. Found right upper quadrant visual deficit and right face numbness
-Continue neurochecks
-LDL:118 -Continue atorvastatin 40mg
-hgbA1C:5.3
-TTE: LV ejection fraction is 55-60%.Interatrial septum is intact with no evidence of shunting by color flow Doppler. Negative for cardioembolic source
-PT/OT
- Appreciate or speech therapist assessment: No dysarthria or dysphonia
#Hypertension
-No History of hypertension
-Likely stable
-BP peak was 159/98 last night
-Permissive hypertension given ischemic nature of CVA
-PRN Labetalol 5mg IV for SBP > 180/105 mmHg in setting of TNK
#Alcohol Abuse
- Drinks 6-8 whiskey drinks 3 times per week, last drink Tuesday consuming 5 drinks
- No known liver disease or withdrawal history
- LFT s in WNL
- Continue Thiamine/Folate
- Monitor on MSAS
#Gingival Bleeding
-No signs of active bleeding for now
-Had mild gingival bleeding s/p TNK. Continue to monitor.
-Could consider nebulized TXA.
- Given vitamin C
#Hx Migraines
-No complaints for now
-History of migraines headache with aura with the last episode yesterday
-Tylenol as needed
#NAHUN -not using currently BiPAP or CPAP
Diet: speech eval: Regular diet with general aspiration precautions
Code Status: Full
DVT ppx: SCDs in setting of TNK.
Anticipated Discharge: Today
Subjective/Interval History
-
Date of Service: July 20, 2024
Patient reports some numbness on the right side of face which started yesterday morning. No fascial asymmetry. No other complaints.
Objective Data
-
Labs:
Laboratory Results
07/20/24
04:32
WBC 9.3
Hgb 14.6
Hct 42.9
Plt Count 264
Sodium 139
Potassium 4.2
Chloride 109 H
Carbon Dioxide 24
BUN 14
Creatinine 0.8
Glucose 110 H
Calcium 10.1
Total Bilirubin 1.6 H D
AST 25
ALT 26
Alkaline Phosphatase 48
Vital Signs:
Vital Signs
Temp Pulse Resp BP Pulse Ox
98.6 F 51 10 119/86 98
07/20/24 08:00 07/20/24 07:00 07/20/24 07:00 07/20/24 04:30 07/20/24 07:00
I&O
07/19/24 07/20/24 07/21/24
06:59 06:59 06:59
Intake Total
Output Total 700 / 700 1775 / 1775
Balance -670 / -670 -1774
Review of Systems
-
History Source: Patient
Constitutional: Reports No Symptoms and Other (than reported on note )
Physical Exam
-
General: Well Developed and Well Nourished
HEENT: Normocephalic, Atraumatic and Other (Right lower quadrant blurry/ right upper quadrantanopia)
Respiratory: Clear to Auscultation
Cardiac: Regular Rhythm and S1/S2
GI: Soft, Nontender and Nondistended
Musculoskeletal: No Clubbing, No Cyanosis and No Edema
Skin: Warm
Neuro: Awake, Alert, Oriented, Nonfocal/Grossly Intact and Other (right face diminished sensation )
Psych: Calm
--- NOTE | 2024-07-20 10:26 | PTOTSP ---
The patient is independent with ambulation and elevations, no strength or mobility deficits noted. Encouraged patient to be deliberate about scanning his environment given his R visual field deficit (overcompensate with head turns) to avoid
obstacles. No PT needs at this time, will sign off.
[2024-07-20] MEDS: ASPIR LOW (ENTERIC COATED) 81 MG PO (11:21)
--- NOTE | 2024-07-20 12:06 | W.DCSUMMARY ---
Addendum entered and electronically signed by Saskia Delgadillo MD 07/20/24 13:24:
Read, reviewed, and agree. See same day progress note for additional details. Time spent coordinating care, DC planning, review of DC plan of care with resident, transition of care, review of records in EMR, med rec, consults, notes, d/w
consultants, nursing, family, and CM = 35 minutes
Original Note:
Discharge Summary
Discharge Data
Date of Admission: 07/19/24
Date of Discharge: 07/20/24
-
Pending Results: No
Hospital Course
Disposition :Home
Primary care physician : Anabella Pires DO
Principal Discharge diagnosis : Acute cerebrovascular accident with suspected vertebral artery dissection
#Acute cerebrovascular accident with suspected vertebral artery dissection: The patient is a 48-year-old male with a past medical history of migraines, NAHUN and alcohol use disorder who had right-sided weakness and numbness and some vision loss on
his right eye when he woke up around 10 pm on 07/18/24. He was brought to ER with a stroke alert. At ER admission, patient found having elevated blood pressure to 149/95. His EKG was found in sinus rhythm and his other lab results were not
remarkable including CBC, CMP and coagulation tests. His head CT was remarkable for subtle loss of spear-white matter differentiation in left occipital lobe. 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
CT angiography showed nonspecified left vertebral artery just beyond origin in neck with faint reconstitution at level of C2 and intracranially concerning for thrombosed dissection. The patient was given TNK after discussed with neurology. The
patient was admitted to ICU for close follow-up/management. Patient's right-sided weakness resolved gradually, but patient found having right upper quadrantanopia. The following day of the admission, patient reported having numbness on the on the
right side of his face and seen by neurology. His stat head MRI did not show any hemorrhage and confirmed the Head CT findings with left occipital lobe infarction. MRI angiography of the brain ([place]/intracranial circulation) noted possibly left
vertebral artery dissection findings. Patient followed by neurology and medically cleared for discharge with the plan to continue aspirin for 2 weeks and, following to switch aspirin to Eliquis if there is no contraindication per neurology.
Patient recommended to see neurology in 1 to 2 weeks and see his PCP in a week for need to be assessed by OT given right partial vision loss. The patient was also given a script for his PCP to reconsider OT evaluation/treatment. He needs to be
assessed by neurology to be allowed to drive.
Important imaging findings :
Head CT 07/18/2024
FINDINGS:
No intra or extra-axial hemorrhage is appreciated. No midline shift.
Ventricles and sulci are of normal caliber.
Subtle loss of spear-white differentiation within the left occipital lobe.
Mastoid air cells are normally aerated. Mucous retention cyst within the right maxillary sinus measures 2 cm in diameter.
IMPRESSION:
Subtle loss of spear-white differentiation within the left occipital lobe.
Head neck CTA 07/18/2024
FINDINGS:
The visualized aortic arch is of normal caliber. Aortic arch branches are also of normal caliber.
The right common carotid artery is of normal caliber. The right internal carotid artery is also of normal caliber, without evidence of significant carotid stenosis, or carotid dissection. The right middle cerebral artery is within normal limits.
There is symmetric cortical perfusion within the MCA territory.
The left common carotid artery is of normal caliber. The left internal carotid artery is also of normal caliber, without evidence of significant carotid stenosis, or carotid dissection. The left middle cerebral artery is within normal limits. There
is symmetric cortical perfusion within the MCA territory.
The left vertebral artery is not well opacified from its origin. Minimal subsegmental reconstitution within the distal cervical vertebral artery Right vertebral artery is of normal caliber.
Basilar artery is normally perfused. Distal P2-T3 branches of each posterior cerebral artery are not well opacified.
The thyroid gland is of normal appearance. No pathologic lymphadenopathy is seen within the neck. No large soft tissue masses are appreciated.
Visualized salivary glands are within normal limits.
No focal aggressive osseous lesions are seen.
The visualized lung apices are normally aerated.
IMPRESSION:
1. The left vertebral artery is not well perfused near the origin, with weak segmental reconstitution of the distal cervical and proximal intracranial left vertebral artery. Basilar artery is normally perfused. Findings may represent left vertebral
arterial occlusion or dissection.
2. Distal P2 and P3 segments of each posterior cerebral artery are not well opacified.
Findings are in agreement with the [facility] radiology report.
Electronically signed by Dima Hirsch MD, 07/19/2024 9:03 AM
[employer] Dose Report: Up-to-date CT equipment and radiation dose reduction techniques were employed. CTDIvol: 2.4 - 14.4 mGy. DLP: 425 mGy-cm.
Brain perfusion CT 07/18/2024
EXAMINATION: Brain perfusion CT
Method: IV contrast enhanced brain perfusion CT, standard sequence acquisition.
Quantitative and qualitative perfusion maps were produced using [employer] software.
These include TMAX (estimates critically hypoperfused brain), rBF (estimates infarcted brain) and
TMAX/rBF ratio (estimates relative size of ischemic penumbra).
There is prolonged Tmax within the left occipital lobe, and decreased cerebral blood flow in the same area. Decreased cerebral blood volume within the left occipital lobe.
CBF<30%: 9 mL (core infarct).
Tmax>6 s:45 mL (delayed perfusion)
Mismatch volume: 36 mL.
Mismatch ratio: 5.0.
There is mildly delayed Tmax within the right occipital lobe >4 sec.
These values, maps and summaries are available for review in [employer].
Electronically signed by Dima Hirsch MD, 07/19/2024 9:13 AM
[employer] Dose Report: Up-to-date CT equipment and radiation dose reduction techniques were employed. CTDIvol: 128.7 mGy. DLP: 1030 mGy-cm.
Dictated By: Dima Hirsch MD
Dictated Date & Time: 07/19/24903
Brain MRI 07/19/2024
Exams: MR Brain Without Contrast
CPT: [id number]
PROCEDURE: MR Brain Without Contrast
CLINICAL INDICATION: possible stroke, status post tenecteplase
TECHNIQUE: Unenhanced MRI imaging of the brain was performed. Images were obtained in multiple planes using a variety of pulse sequences including T1 weighting, T2 weighting, FLAIR, and diffusion-weighted imaging.
COMPARISON: CT of the head, CT angiography of the head and neck, and CT brain perfusion from July 18, 2024.
FINDINGS: There is a focal area of abnormal restricted diffusion involving the medial left occipital lobe, compatible with a region of acute to subacute infarction. This region of involvement measures 5.9 cm AP by 3.2 cm transverse by 5.5 cm
craniocaudal.
Slightly more laterally within the left occipital lobe, there are additional small foci of abnormal restricted diffusion compatible with additional small foci of acute to subacute infarct.
On susceptibility weighted images, there is no evidence for associated hemorrhage or hemosiderin deposition.
No other focal area of abnormal restricted diffusion is identified.
There is no mass effect with no midline shift.
The ventricles and subarachnoid cisterns appear within normal limits.
The craniocervical junction appears normal with no evidence for Chiari malformation. The pituitary gland appears grossly within normal limits.
There is loss of flow void within the visualized superior left vertebral artery, compatible with slow flow and/or occlusion.
Mild patchy mucosal thickening of the ethmoid sinuses. Minimal peripheral mucosal thickening of the sphenoid sinuses. There is a 2 cm polyp or mucous retention cyst within the right maxillary sinus.
The mastoid air cells appear clear.
IMPRESSION:
Focal area of abnormal restricted diffusion involving the left occipital lobe, as described, compatible with an acute to subacute area of infarction.
No evidence for associated hemorrhage. There is no mass effect with no midline shift.
Brain MRI 07/19/2024 --[facility] [place] [facility]
EXAMINATION: MR angiography of the [place]/intracranial circulation
CPT: [id number]
INDICATION: Diminished flow within the left vertebral artery on CT angiography of the head and neck, with concern for intracranial CVA.
COMPARISON: MRI of the brain obtained concurrently. CT angiography of the head and neck from July 18, 2024.
FINDINGS: Unenhanced three-dimensional [id number] MR angiography of the intracranial circulation is performed. Source axial images are reviewed as well as 3-D volume and multiplanar reconstructions.
On this exam, with visualization from the inferior C1 level through the superior cortex.
There is normal flow signal within the V3 and V4 portions of the right vertebral artery.
There is minimal flow signal within the left vertebral artery within the foramen of C1. There is no significant flow signal seen within the left vertebral artery as it exits the foramen, with no flow identified until the left vertebral artery
appears cystic or. There is flow signal previous stab with within the V4 portion of the left vertebral artery, although diminished in caliber, especially superiorly. These findings are likely the result of left vertebral artery dissection.
There is no significant narrowing of the basilar artery.
A right posterior inferior cerebellar artery branch is noted. Left posterior inferior cerebellar artery branch is not confidently identified. The anterior-inferior cerebellar artery branches are seen bilaterally. Superior cerebellar arteries are
seen bilaterally. Patent posterior communicating arteries are present bilaterally.
Asymmetric prominence of the distal branches of the left posterior cerebral artery when compared to the right. This may represent luxury perfusion in an area of left occipital infarction.
Normal appearance of the superior cervical and intracranial portions of the internal carotid arteries bilaterally. Normal appearance of the anterior cerebral and middle cerebral arteries bilaterally.
There is no CT angiographic evidence for intracranial aneurysm.
IMPRESSION: Areas of loss of flow and diminished flow within the visualized superior left vertebral artery, likely representing findings from left vertebral artery dissection.
Normal appearance of the visualized superior right vertebral artery. Normal appearance of the basilar artery. The distal branches of the left posterior cerebral artery appears slightly larger and more prominent than the distal branches of the right
posterior cerebral artery. This may represent luxury perfusion after left occipital infarction.
Electronically signed by Grzegorz Miguel MD, 07/19/2024 10:07 PM
Procedure findings :
Echo 07/19/2024
CONCLUSIONS
LV ejection fraction is 55-60%. Normal regional wall motion.
Normal right ventricular size and function.
No significant valvular disease.
Interatrial septum is intact with no evidence of shunting by color flow
Doppler.
No prior study available for comparison.
Indications:
stroke/TIA
Rhythm: Sinus
Portable Study: Yes
Technical Quality: Fair
Contrast: None
BP: 112 / 75
PROCEDURE
A complete Transthoracic Echocardiogram was performed utilizing two-dimensional
evaluation with color flow and spectral Doppler analysis.
FINDINGS
Left Ventricle
Normal left ventricular size and function. Normal regional wall motion. Normal
left ventricular wall thickness. LV ejection fraction is 55-60%. Normal
diastolic function. A false tendon is present.
Right Ventricle
Normal right ventricular size and function.
Left Atrium
Indexed LA volume is within normal range (15-34 mL/m2).
Right Atrium
Normal right atrium.
Mitral Valve
Mitral valve opens normally. Mitral annular calcification. Trace mitral
regurgitation.
Aortic Valve
Trileaflet aortic valve. Aortic valve opens normally.
Tricuspid Valve
Tricuspid valve opens normally. Trace tricuspid regurgitation. Right heart
pressures could not be determined.
Pulmonic Valve
Pulmonic valve opens normally. Mild pulmonic regurgitation.
Pericardium\\Pleura
Normal pericardium without effusion.
Aorta
The aortic root is of normal size. Normal ascending aorta.
Other Finding
The IVC is of normal size and demonstrates normal respiratory variation.
Interatrial septum is intact with no evidence of shunting by color flow
Doppler. No intracardiac mass or thrombus formation seen.
MEASUREMENTS (Male / Female) Normal Values
2D ECHO
LV Diastolic Diameter PLAX 5.2 cm 4.2 - 5.9 / 3.9 - 5.3 cm
LV Systolic Diameter PLAX 3.5 cm
LV Fractional Shortening PLAX 32.7 %
IVS Diastolic Thickness 1.0 cm 0.6 - 1.0 / 0.6 - 0.9 cm
LVPW Diastolic Thickness 1.0 cm 0.6 - 1.0 / 0.6 - 0.9 cm
LV Relative Wall Thickness 0.4
LVOT Diameter 2.3 cm
LA Systolic Diameter LX 3.8 cm 3.0 - 4.0 / 2.7 - 3.8 cm
LV Ejection Fraction MOD BP 57.1 % >= 55 %
LV Stroke Volume MOD BP 55.2 cm3
LV Cardiac Index MOD BP 1838.7 cm3/min
LV Ejection Fraction MOD 4C 56.3 %
LV Stroke Volume MOD 4C 51.5 cm3
LV Ejection Fraction 4C AL 56.1 %
LV Stroke Volume 4C AL 52.6 cm3
LV Ejection Fraction MOD 2C 59.3 %
LV Stroke Volume MOD 2C 58.8 cm3
LV Ejection Fraction 2C AL 59.3 %
LV Stroke Volume 2C AL 58.8 cm3
LA Area 4C View 16.0 cm2 <= 20 cm2
LA Length 4C 5.6 cm
LA Volume 34.0 cm3 18 - 58 / 22 - 52 cm3
LA Volume Index 20.1 cm3/m2 16 - 34 cm3/m2
RV Diastolic Basal Diameter 4.0 cm 2.0 - 2.8 cm
RV Diastolic Mid Diameter 3.9 cm 2.7 - 3.3 cm
Aorta at Sinotubular Diameter 2.6 cm
Ascending Aorta Diameter 3.3 cm
Aorta at Sinuses Diameter 3.2 cm
M-MODE
AV Cusp Separation MM 2.1 cm
DOPPLER
LVOT Peak Velocity 118.0 cm/s
LVOT Peak Gradient 5.6 mmHg
LVOT Velocity Time Integral 21.2 cm
LVOT Stroke Volume 88.1 cm3
LVOT Stroke Volume Index 42.5 ml/m2 empty
LVOT Cardiac Index 2933.9 cm3/min\\m2
MV Area PHT 3.5 cm2
Mitral E Point Velocity 69.8 cm/s
Mitral A Point Velocity 66.4 cm/s
Mitral E to A Ratio 1.1
LV E' Lateral Velocity 10.7 cm/s
Mitral E to LV E' Lateral Ratio 6.5
LV E' Septal Velocity 10.8 cm/s
Mitral E to LV E' Septal Ratio 6.5
3D ECHO
LV Ejection Fraction 3D 58.0 %
Teodoro Keith MD, [facility]
(Electronically Signed)
Final Date: 19 Jul 2024 12:53
Dictated By: Teodoro Keith MD
Dictated Date & Time: 07/19/24 0750
Signed By: Teodoro Keith MD
Signed Date & Time: 07/19/24 1253
Discharge Plan
-
Patient Disposition: Home (Routine Discharge)
Discharge Diagnosis/Procedures: Acute cerebrovascular accident with suspected vertebral artery dissection
Alcohol use problem
Migraines with aura
Obstructive sleep apnea
History of dry mouth with gingival bleeding
Diet: Low Cholesterol
Activity: As tolerated
Driving Restrictions: Not until seen by your Dr
Bathing Restrictions: None
Other Services: OT
Referrals:
Chintan Thao MD [Active] - in one to two weeks
(It is planning to switch patient's aspirin to Eliquis in 2 weeks by neurology
The patient is to have follow-up with neurologist in 1 to 2 weeks)
Anabella Pires DO [Family Provider] - in less than 1 week (Follow-up with your PCP for repeat of OT evaluation given right visual deficit)
Additional Discharge Medication Instructions: You will take the baby aspirin for 2 weeks.
After that, you should begin Eliquis as indicated by neurology.
Prescriptions:
New
aspirin 81 mg Tablet,Delayed Release (Dr/Ec)
81 mg PO DAILY 14 Days Qty: 14 0RF
atorvastatin 40 mg Tablet
40 mg PO QPM 30 Days Qty: 30 0RF
Continued
acetylcysteine [NAC] 600 mg Capsule
cholecalciferol (vitamin D3) [Vitamin D3] 25 mcg (1,000 unit) Tablet,Chewable
25 mcg PO DAILY
creatine monohydrate
miscellaneous medical supply
Rx Instructions:
Alpha Brain, NMN supplements
Discharge Orders:
Discharge Patient (As Directed); Ordered 07/20/24
Ordered By: Azeb Hadley
Discharge Date and Time
Discharge Date/Time: 07/20/24 13:16
Print Language: ITALIAN
--- NOTE | 2024-07-20 13:01 | CM ---
Patient has been medically cleared for discharge to home with no additional skilled services. to transport home.
== END 2024-07-20 13:16 | disposition home or self-care (01) | DRG 61 ==
LOC: ICU 02:10
PROVIDERS: Physician Assistant; Student in an Organized Health Care Education/Training Program; ADMITTING PHYSICIAN Internal Medicine; ATTENDING PHYSICIAN Internal Medicine; CONSULT PHYSICIAN Psychiatry & Neurology Clinical Neurophysiology; EMERGENCY PHYSICIAN Emergency Medicine; FAMILY PHYSICIAN Family Medicine; OTHER PHYSICIAN Internal Medicine
PROC: 3E03317 Introduction of Other Thrombolytic into Peripheral Vein, Percutaneous Approach (ICD-10-PCS; 2024-07-19)
DX: I63.012 Cerebral infarction due to thrombosis of left vertebral artery (principal); I77.74 Dissection of vertebral artery; G81.91 Hemiplegia, unspecified affecting right dominant side; R20.2 Paresthesia of skin; R47.01 Aphasia; H53.9 Unspecified visual disturbance; I10 Essential (primary) hypertension; H53.40 Unspecified visual field defects; F10.10 Alcohol abuse, uncomplicated; I34.81 Nonrheumatic mitral (valve) annulus calcification; G47.33 Obstructive sleep apnea (adult) (pediatric); K06.8 Other specified disorders of gingiva and edentulous alveolar ridge; Z87.891 Personal history of nicotine dependence; Z80.8 Family history of malignant neoplasm of other organs or systems; Z81.1 Family history of alcohol abuse and dependence; Z82.3 Family history of stroke
CPT/HCPCS: 0042T; 70450; 70496; 70498; 70544; 70551; 71045; 80053; 80061; 81003; 81015; 82248; 82962; 83036; 83735; 84100; 84484; 85025; 85027; 85610; 85652; 85730; 86140; 92523; 92610; 93005; 93306; 96374; 97163; 97167; 99283; J3101; Q9967

== ENCOUNTER 2024-11-17 08:19 | Emergency (ER) | payer OTHER, SELFPAY ==
[2024-11-17 08:33] VITALS: BP 147/86
[2024-11-17 09:07] VITALS: BMI 29.0
[2024-11-17] MEDS: BENADRYL 25 MG PO (10:09)
[2024-11-17] MEDS: DELTASONE 50 MG PO (10:09)
--- NOTE | 2024-11-17 10:32 | ED.GENMED ---
History of Present Illness
General
Chief Complaint: Allergic Reaction
Source: patient
Exam Limitations: none
Time Seen by Provider: 11/17/24 09:20
Nursing documentation reviewed up to this point in time: agreed with
History of Present Illness
History of Present Illness:
see MDM
Past History
Past History
ED Past Medical History: CVA and Other (carotid dissection)
Social History
Tobacco: Non-smoker
Review of Systems
Review of Systems
Allergies reviewed?: Yes
All Other Systems: Not applicable
Phy Exam
Physical Exam
Physical Exam:
GENERAL: Alert , in no apparent distress
EYE: pupils equal and reactive
Face: No facial swelling
NECK: Supple
ENT: o/p clr, mmm. Normal uvula, no trouble swallowing,
CARDIAC: Regular rate and rhythm .
LUNGS: Clear breath sounds bilaterally, no acute respiratory distress, no wheezes/rales/rhonchi
ABDOMEN: Soft, without focal tenderness, no r/g, no cvat, normal bowel sounds
NEUROLOGICAL: Alert and oriented, no focal neuro deficits
SKIN: Warm and dry, diffuse erythema to the volar aspect of the right wrist and forearm in the distal third, some mild erythema to the dorsal aspect of the wrist and hand, the whole mid forearm down through the hand and fingers is diffusely swollen,
there are few hives scattered more proximally on the forearm volar surface and a few hives on his abdomen but otherwise there is no widespread urticaria,
MUSCULOSKELETAL: Moderate swelling to the soft tissue of the right forearm and hand where he was stung
PSYCH: Normal and appropriate interaction.
Course
Orders/Labs/Results
Orders:
Orders
11/17/24 09:54
Diphenhydramine [Benadryl] 25 mg PO NOW STA
Prednisone [Deltasone] 50 mg PO NOW STA
Vital Signs
Initial and Last Documented VS:
Initial Vital Signs
Temp Pulse Resp BP Pulse Ox
36.8 C 57 16 147/86 98
11/17/24 08:33 11/17/24 08:33 11/17/24 08:33 11/17/24 08:33 11/17/24 08:33
Last Documented Vital Signs
Temp Pulse Resp BP Pulse Ox
36.6 C 62 17 136/84 98
11/17/24 10:59 11/17/24 10:59 11/17/24 10:59 11/17/24 10:59 11/17/24 10:59
MDM/Problems Addressed
Differential Diagnosis Includes:
See MDM
MDM/Problems Addressed:
Note:
CHIEF COMPLAINT(S)
Swelling and rash after insect sting.
HISTORY OF PRESENT ILLNESS
The patient is a 48-year-old male, history of carotid dissection and stroke, anticoagulated who presented with swelling and a rash on his extremity following an insect sting on both the volar and dorsal aspect of the wrist on the right that occurred
earlier today during a walk. The patient reports being stung in two locations but did not see the insect. Upon returning home, he noticed significant swelling in the affected area. He self-administered one adult dose of diphenhydramine (Benadryl) 25
mg approximately at 7:45 AM, which resulted in moderate relief of symptoms, saying that he had more hives in his trunk and leg and more on his arm that he had, the swelling and redness is also improved in his right forearm and hand. He denies
previous allergic reactions to insect stings, though he notes a previous sting a year or two ago. He has noticed no improvement in his ability to form a fist. The patient reports no difficulty swallowing, breathing difficulties, vomiting, or
diarrhea, indicating the absence of systemic involvement.
PAST MEDICAL AND SURIGICAL HISTORY
- History of stroke in June, secondary to clotting possibly related to a previous workout with [employer], resulting in right peripheral vision loss.
- Currently on anticoagulants and low-dose aspirin.
ALLERGIES
Allergic to penicillin.
PHYSICAL EXAM
- Observation of localized swelling and rash at the site of insect sting.
- The patient is able to move fingers but reports difficulty making a tight fist.
PLAN
- Administration of another dose of diphenhydramine ([id number] strength) to address symptoms.
- Prescribe prednisone to manage inflammation and help reduce tissue swelling.
- Issue a prescription for an epinephrine auto-injector (EpiPen) for future stings and potential anaphylactic reaction.
- Patient education on signs of anaphylaxis (e.g., rash plus trouble breathing or swallowing, facial swelling, or vomiting) and instruction on EpiPen use, advising administration if two systems are involved.
- Instruct the patient to monitor symptoms, to take additional benadryl as needed, and to take prednisone daily if symptoms persist.
- Arrange to observe the patient briefly in the emergency department to ensure no escalation of symptoms.
- Send prescription to the local pharmacy ([facility] in [place], [place]).
DIFFERENTIAL DIAGNOSIS
The Differential Diagnosis includes, in no particular order and is not limited to:
1. Local allergic reaction to insect sting
2. Anaphylaxis
3. Infectious cellulitis
4. Venom-mediated immune response
5. Angioedema
6. Contact dermatitis
7. Hematoma from anticoagulant use
8. Insect bite hypersensitivity
9. Urticaria
10. Serum sickness-like reaction
48-year-old male with insect sting to his right wrist volar and dorsal aspect with redness and edema and hives. He had a little bit more widespread hives earlier but took Benadryl 25 mg which did help. It is not fully gone but it is much improved,
he has swelling and tightness to the skin on the right wrist and hand but only a few urticaria on the forearm and a very tiny amount on his abdomen. He has no facial swelling, uvular swelling, trouble swallowing, wheezing. He is not having any
signs of anaphylaxis. I gave him an additional dose of Benadryl and a dose of prednisone and will send him home with instructions to take prednisone once a day for 3 days, Benadryl as needed every 8 and I will give him an EpiPen prescription just
in case.
*Pulse Oximetry
SaO2: 98
Oxygen Mode of Delivery: Room air
Patient hypoxic: no (98)
*Critical Care Note
Total Time (30-74mins, 75-104mins- exclusive of procedures): Not Applicable
ED Attending Note
-
Portions of this chart may have been created with voice recognition software.� Occasional wrong word or��sound alike� substitutions may have occurred due to the inherent limitations of voice recognition software.
Discharge Plan
Departure
Patient Disposition: Home (Routine Discharge)
Date of Disposition: 11/17/24
Time of Disposition: 10:36
Patient with high blood pressure during this ER visit?: No
Condition: Fair
Covid-19: Not Applicable
Discharge Problem:
Allergic reaction to insect sting
Instructions: Hives (DC)
Prescriptions:
New
epinephrine [EpiPen 2-Nils] 0.3 mg/0.3 mL auto-injector
0.3 mg IM Q5-15M PRN (Reason: anaphylaxis) Qty: 2 0RF
prednisone 50 mg tablet
50 mg PO DAILY Qty: 3 0RF
No Action
acetylcysteine [NAC] 600 mg Capsule
cholecalciferol (vitamin D3) [Vitamin D3] 25 mcg (1,000 unit) Tablet,Chewable
25 mcg PO DAILY
creatine monohydrate
miscellaneous medical supply
Rx Instructions:
Alpha Brain, NMN supplements
aspirin 81 mg Tablet,Delayed Release (Dr/Ec)
81 mg PO DAILY 14 Days Qty: 14 0RF
atorvastatin 40 mg Tablet
40 mg PO QPM 30 Days Qty: 30 0RF
Activity Restrictions/Additional Instructions:
You had an allergy reaction to the insect stings. Take Benadryl 2 tablets every 8 hours as needed for redness, hives, itching today and tomorrow. Then only as needed. You can also take prednisone once a day starting tomorrow for the next 3 days.
I gave you prescription for an EpiPen which you should fill and keep with you. If you suddenly feel any worse or get stung again and have rash plus any other symptoms like trouble breathing, trouble swallowing, vomiting, diarrhea, etc. then you
should use the EpiPen and call 911.
Apply ice off-and-on to your hand today, the swelling is common and should go down with time.
Interventions
Interventions:
*Risk Screen - Suicide Last Done: 11/17/24 08:33
*General Assessment Last Done: 11/17/24 09:18
*Neglect/Abuse Screening Last Done: 11/17/24 08:33
*ED COVID-19 Vaccine History Last Done: 11/17/24 09:18
*Nursing Disposition Last Done: 11/17/24 11:01
ED- Cardiac Assessment Last Done: 11/17/24 09:07
ED- Pulmonary Assessment Last Done: 11/17/24 09:07
ED-Skin Assessment Last Done: 11/17/24 09:07
Discharge Date and Time
Discharge Date/Time: 11/17/24 11:02
Print Language: [place]
[2024-11-17 10:59] VITALS: BP 136/84
== END 2024-11-17 11:02 | disposition home or self-care (01) ==
LOC: EMR 08:19
PROVIDERS: EMERGENCY PHYSICIAN Student in an Organized Health Care Education/Training Program; FAMILY PHYSICIAN Family Medicine
DX: T63.481A Toxic effect of venom of other arthropod, accidental (unintentional), initial encounter (principal); L50.9 Urticaria, unspecified; Z86.73 Personal history of transient ischemic attack (TIA), and cerebral infarction without residual deficits; Z88.0 Allergy status to penicillin; Z79.01 Long term (current) use of anticoagulants; Z79.82 Long term (current) use of aspirin
CPT/HCPCS: 99283